=== PATIENT | female | born 1945 | race Hispanic/Latino ===

== ENCOUNTER 2021-04-06 11:09 | Day surgery (SDC) | payer OTHER ==
--- NOTE | 2021-04-03 11:03 | RAD REPORT ---
EXAM DESCRIPTION: RAD - Chest Pa And Lat (2 Views) - 04/03/2021 10:58 am CLINICAL HISTORY: pre-section laborer procedure COMPARISON: No comparisons FINDINGS: Lines: None. Lungs: No evidence of edema or pneumonia. Pleural: No significant pleural effusions or pneumothorax. Cardiac: The heart size is within normal limits. Bones: No acute fractures. Other: IMPRESSION: No acute cardiopulmonary disease.
[2021-04-03 11:21] LABS: Absolute Lymphocytes (CBC) 2.4 K/uL (0.7-4.9); Basophils % 0.9 % (0-1.3); Hematocrit 39.9 % (36.0-45.0); Lymphocytes % 38.4 % (15.3-44.8); MPV 8.4 fL (7.6-11.3); RBC Red Blood Cell Count 4.55 M/uL (3.86-4.86)
[2021-04-03 11:26] LABS: Protime INR 1.02
[2021-04-03 11:32] LABS: BUN Blood Urea Nitrogen 7 mg/dL (7-18); Bicarbonate 32 mmol/L (21-32); Glucose Level 113 mg/dL (74-106); Potassium 3.5 mmol/L (3.5-5.1); Sodium Level 144 mmol/L (136-145)
[2021-04-06] MEDS ORDERED: NA CHLORIDE 0.9% 500 ML ONE (11:38)
[2021-04-06] MEDS ORDERED: HEPA 1000U/500MLS 2,000 UNIT/1,000 ML BAG IV ONE (11:49)
[2021-04-06] MEDS ORDERED: MIDAZOLAM HCL 2 MG/2 ML INJ ONE ×2 (11:49→12:53)
[2021-04-06] MEDS ORDERED: VERAPAMIL HCL 10 MG/4 ML VIAL IV ONE (11:50)
[2021-04-06] MEDS ORDERED: FENTANYL CITR 100 MCG/2 ML ONE (11:50)
[2021-04-06] MEDS ORDERED: ATROPINE SULF 1 MG/10 ML SYR IV ONE (11:51)
[2021-04-06] MEDS ORDERED: HEPARIN 5000 UNIT/ML 1 ML VIAL ONE (11:51)
[2021-04-06] MEDS ORDERED: NITROGLYCERIN 100 MCG/ML SYR (for cath lab use only) IV ONE (11:51)
[2021-04-06 16:46] VITALS: TEMP 97.4
[2021-04-06 17:00] VITALS: O2SAT 96
[2021-04-06 17:03] VITALS: BP 122/64
--- NOTE | 2021-04-06 22:01 | OP ---
Surgeon: LISA CUADRA Procedures Performed: 1.Selective coronary angiogram. 2.Left heart catheterization. 3.Right heart catheterization. Indications: Significant dyspnea on exertion. Access: 1.The right radial artery 6-Bulgarian closed with TR band. 2.Right IJ 7-Bulgarian closed with manual pressure. Complications: None. Bleeding: Less than 10 mL. Anesthesia: Total sedation time was 20 minutes. Description Of Procedure: After risks, benefits, symptoms were explained, the patient agreed to proc eed and signed informed consent. The patient was brought into cardiac catheterization laboratory, pr epped and draped in usual sterile fashion and we accessed right radial artery using pediatric micropu ncture kit and placed a 6-Bulgarian slender sheath and accessed right IJ using micropuncture kit under u ltrasound guidance and placed a 7-Bulgarian pinnacle sheath and took a 7-Bulgarian balloon tip swan through the IJ access into the RA, RV, PA, and which recorded waveform and pressure and then cardiac output was obtained with thermodilution method, then removed despondent, took the 5-Bulgarian tiger 4.0 cathete r into the aortic root over a J-wire, engaged left main, right coronary artery, took standard views a nd the catheter was pushed over the wire into the LV across aortic valve, recorded LVEDP. Upon pullb ack, there was no gradient and removed the catheter and sheath is still in good hemostasis. Findings: 1.Left main, large and normal. 2.LAD, large and normal. 3.Left circumflex; codominant, large, and normal. 4.RCA; codominant, large, and normal. 5.LVEDP of 3 mmHg. Right heart catheterization numbers: RA pressure was 3 mmHg. RV pressure was 27/1 with a mean of 2. PA pressure was 19/8 with a mean of 13. Pulmonary wedge pressure was 5 mmHg. Conclusion: 1.Normal coronary arteries. 2.Normal filling pressures. Recommendations: Consult Pulmonary to evaluate other causes of shortness of breath. SR/MODL Voice ID: [id number] Report ID: [id number]
== END 2021-04-06 16:15 | disposition home or self-care (01) ==
LOC: CCL 11:09
PROVIDERS: ATTEND Internal Medicine
DX: R07.9 Chest pain, unspecified (principal); R06.02 Shortness of breath; I10 Essential (primary) hypertension; I49.3 Ventricular premature depolarization; Z20.822 Contact with and (suspected) exposure to COVID-19
CPT/HCPCS: 36415; 71046; 80048; 85025; 85610; 85730; 93460; C1893; J1644; J2250; J3010; J7040; U0003

== ENCOUNTER 2022-04-24 20:10 | Emergency (ER) | payer OTHER ==
--- OUTSIDE RECORDS SUMMARY | 2022-04-24 20:17 | XMS REPORT | Continuity of Care Document ---
:1945 Author Organization [facility] t Address [address] [place] [address] Care Team Providers Name Role Phone Gee Li MD Primary Care Physician DEDE HICKEY Attending Clinician Unavailable DEDE HICKEY Attending Clinician Unavailable Doctor Unassigned, [place] Attending Clinician Unavailable Vanesa Goldman Attending Clinician Lab, Ang - Db Attending Clinician Unavailable Gee Li MD Attending Clinician GEE LI Attending Clinician Unavailable WAYNE MACHADO Attending Clinician Unavailable Kanwal Tejeda DO Attending Clinician Wayne Machado DO Attending Clinician Dede Hickey DO Attending Clinician Austin Ying Attending Clinician AUSTIN ZARCO Attending Clinician Unavailable Mona Joseph Attending Clinician REBECCA FIERRO Attending Clinician Unavailable Rebecca Fierro MD Attending Clinician [facility], [facility] Sleep Lab Attending Clinician Unavailable Maricel Baxter MD Attending Clinician MARICEL BAXTER Attending Clinician Unavailable MARICEL BAXTER Attending Clinician Unavailable Therapist, Adc Respiratory Attending Clinician Unavailable Donnie Do MD Attending Clinician DONNIE DO Attending Clinician Unavailable Fredrick DUNN, Alaina Arriaga Attending Clinician Unavailable Only, Ang Db Test Attending Clinician Unavailable Priscilla Hooks Attending Clinician PRISCILLA SMITH Attending Clinician Unavailable KLEBER FLORES Attending Clinician Unavailable Nurse, [facility] Pob Immunization Attending Clinician Unavailable Kleber Flores DO Attending Clinician Brittni Manriquez Attending Clinician BRITTNI MORROW Attending Clinician Unavailable ESTER TINAJERO Attending Clinician Unavailable TAMMY CULP Attending Clinician Unavailable RAND EARLY M.D. Attending Clinician Unavailable DIANE LONDON Attending Clinician Unavailable MONICO KELLY Attending Clinician Unavailable ALLEN CROSS Attending Clinician Unavailable TEJINDER LEIVA Attending Clinician Unavailable KARTHIK CHAPIN Attending Clinician Unavailable 1, [facility] Lab Attending Clinician Unavailable Karthik Chapin MD Attending Clinician [phone] KANWAL TEJEDA Admitting Clinician Unavailable REBECCA FIERRO Admitting Clinician Unavailable DEDE HICKEY Admitting Clinician Unavailable Dede Hickey DO Admitting Clinician GEE LI Admitting Clinician Unavailable MONICO KELLY Admitting Clinician Unavailable TEJINDER LEIVA Admitting Clinician Unavailable Payers Payer Name Policy Type Policy Number Effective Date Expiration Date S [facility] [id number] 2020 MEDICARE ADV HMO 00:00:00 [employer] MEDICARE ERS [id number] 2014 00:00:00 Problems Condition Condition Condition Status Onset Resolution Last Treating Co mments Source Name Details Category Date Date Treatment Clinician Date MARVIN MARVIN Disease Active Overview: Univer s (dyspnea (dyspnea 6-06 Formattin ity of on on 00:00: g of this [place] exertion) exertion) 00 note Medi lora might be Branch different from the original. Added automatic ally from request for surgery [id number] Primary Primary Disease Active Univers hypertensi hypertensi 1-05 it y of on on 00:00: [place] [facility] Abnormal Abnormal Disease Active 2020-05 Unive rs chest chest 0-18 ity of x-ray x-ray 00:00: [place] [facility] Cardiac Cardiac Disease Active 2020-05 Univers arrhythmia arrhythmia 0-18 it y of , , 00:00: [place] unspecifie unspecifie 00 Me dical d cardiac d cardiac Bran ch arrhythmia arrhythmia type type Post-op Post-op Disease Active Univers pain pain 9-04 ity of 00:00: [place] [facility] Prediabete Prediabete Disease Active 2017-05 U jimers s s 0-24 ity of 00:00: [place] [facility] Osteoporos Osteoporos Disease Active 2015-05 U nivers is is 2-01 ity of 00:00: [place] [facility] Obesity Obesity Disease Active 2015-05 Univers (BMI (BMI 1-09 ity of 30-39.9) 30-39.9) 00:00: [place] [facility] Pain Pain Disease Active Univers 5-25 ity of 00:00: [place] [facility] Sciatica Sciatica Disease Active 2014-05 Unive rs associated associated 0-21 it y of with with 00:00: [place] disorder disorder 00 Medica l of of Branch lumbosacra lumbosacra l spine, l spine, right right Restless Restless Disease Active 2014-05 Unive rs leg leg 0-21 ity of syndrome syndrome 00:00: [place] [facility] Arthritis Arthritis Disease Active 2014-05 Uni vers of knee, of knee, 0-21 ity of left left 00:00: [place] [address] Medical Branch Acute pain Acute pain Problem Active U T of right of right Physic i knee knee ans History of History of Problem Active U T right knee right knee Ph ysici joint joint ans replacemen replacemen t t Allergies, Adverse Reactions, Alerts Allergy Allergy Status Severity Reaction(s) Onset Inactive Treating Comm ents Source Name Type Date Date Clinician NO KNOWN Drug Active Univers ALLERGIE Class ity of S [facility] Social History Social Habit Start Date Stop Date Quantity Comments Source History SDOH University o f Alcohol Frequency [place] [facility] History SDAK University o f Alcohol Std [place] [facility] Drinks Branch History SDAK University o f Alcohol Binge [place] [facility] Exposure to 2022-04-02 2022-04-12 Not sure [facility] SARS-CoV-2 00:00:00 07:34:00 [facility] (event) [place] Alcohol intake 2022-04-12 2022-04-12 0 /d University of 00:00:00 00:00:00 [facility] Tobacco use and 2021-12-11 2021-12-11 Smokeless tobacco Un iversity of exposure 00:00:00 00:00:00 non-user [facility] Alcohol Comment 2015-10-06 2015-10-06 Occassional Universi ty of 00:00:00 00:00:00 Drinker [facility] Sex [birth year] Universit y of 00:00:00 00:00:00 [facility] Smoking Status Start Date Stop Date Source Never smoked tobacco [facility] Medications Ordered Filled Start Stop Current Ordering Indication Dosage Frequency Signature Comments Components Source Medication Medication Date Date Medication? Clinician (SIG) Name Name magnesium 2021-05 Yes [id number] 400mg Take 1 Univers oxide (MGO) 1-28 tablet by ity of 400 mg 00:00: mouth in [place] (241.3 mg 00 the Medical magnesium) morning. Branc h tablet magnesium 2021-05 Yes [id number] 400mg Take 1 Univers oxide (MGO) 1-28 tablet by ity of 400 mg 00:00: mouth in [place] (241.3 mg 00 the Medical magnesium) morning. Branc h tablet magnesium 2021-05 Yes [id number] 400mg Take 1 Univers oxide (MGO) 1-28 tablet by ity of 400 mg 00:00: mouth in [place] (241.3 mg 00 the Medical magnesium) morning. Branc h tablet magnesium 2021-05 Yes [id number] 400mg Take 1 Univers oxide (MGO) 1-28 tablet by ity of 400 mg 00:00: mouth in [place] (241.3 mg 00 the Medical magnesium) morning. Branc h tablet magnesium 2021-05 Yes [id number] 400mg Take 1 Univers oxide (MGO) 1-28 tablet by ity of 400 mg 00:00: mouth in [place] (241.3 mg 00 the Medical magnesium) morning. Branc h tablet iopamidol 2021-05- No [id number] 75mL 75 mL, U nivers (ISOVUE 06-09 Intravenou ity o f 370-500 mL) 00:54: 01:00 s, ONCE, 1 [place] injection 00 :00 dose, On Medica l 75 mL [place] Branch 04/08/22 at 1900, Routine albuterol 2021-05- No 5mg 5 mg, Univer s (PROVENTIL) 06-09 Inhalation i ty of 2.5 mg /3 00:30: 23:46 , [place]CE[place] 1 [place] mL (0.083 00 :00 dose, On Medica l %) [facility] Branch nebulizer 04/08/22 solution 5 at 1830, mg LIBERTAD insulin 2021-05- No 5U 5 Units, Unive rs regular 06-09 Slow IV ity of human 00:00: 23:13 Push, [place] (HUMULIN R) 00 :00 ONCE, 1 Medic al injection 5 dose, On Bran ch Units [place] 04/08/22 at 1800, Routine
Indicatio n for insulin: Hyperglyce devendra NaCl 0.9% 2021-05- No 1000mL at 999 Uni vers (NS) bolus 06-08 11-25 mL/hr, ity of infusion 23:45: 00:46 1,000 mL, [place] as 1,000 mL 00 :00 IV Medical Infusion, Branch ONCE, 1 dose, On [place] 04/08/22 at 1745, LIBERTAD albuterol 2021-05 Yes [id number] 2{puff} Inhale 2 Univers 90 1-24 Puffs ity of mcg/actuati 00:00: every 4 [place] as on inhaler 00 (four) Medical hours as Branch needed for Wheezing or Shortness of Breath. albuterol 2021-05- No [id number] 2{puff} Inhale 2 Univers 90 1-24 11-28 Puffs ity of mcg/actuati 00:00: 00:00 [place] 4 [place] inhaler 00 :00 (four) Medical hours as Branch needed for Wheezing or Shortness of Breath. albuterol 2021-05- No [id number] 2{puff} Inhale 2 Univers 90 1-24 11-28 Puffs ity of mcg/actuati 00:00: 00:00 [place] 4 [place] inhaler 00 :00 (four) Medical hours as Branch needed for Wheezing or Shortness of Breath. predniSONE 2021-05- Yes [id number] 40mg Take 2 Univers 20 mg 1-22 11-28 tablets by ity of tablet 00:00: 05:59 mouth in [place] 00 :00 the [facility] morning [place] for 5 days. predniSONE 2021-05- Yes [id number] 40mg Take 2 Univers 20 mg 1-22 11-28 tablets by ity of tablet 00:00: 05:59 mouth in [place] 00 :00 the [facility] morning [place] for 5 days. predniSONE 2021-05- Yes [id number] 40mg Take 2 Univers 20 mg 1-22 11-28 tablets by ity of tablet 00:00: 05:59 mouth in [place] 00 :00 the [facility] morning [place] for 5 days. predniSONE 2021-05- Yes [id number] 40mg Take 2 Univers 20 mg 1-22 11-28 tablets by ity of tablet 00:00: 05:59 mouth in [place] 00 :00 the [facility] for 5 days. cefdinir 2021- Yes 300mg Take 300 Univ ers 300 mg 1-21 mg by ity of capsule 00:00: mouth in [place] [address] the [facility] morning [place] and 300 mg in the evening. cefdinir 2021-1 Yes 300mg Take 300 Univ ers 300 mg 1-21 mg by ity of capsule 00:00: mouth in [place] [address] the [facility] morning [place] and 300 mg in the evening. cefdinir 2021- Yes 300mg Take 300 Univ ers 300 mg 1-21 mg by ity of capsule 00:00: mouth in [place] [address] the [facility] morning [place] and 300 mg in the evening. cefdinir 2021-1 Yes 300mg Take 300 Univ ers 300 mg 1-21 mg by ity of capsule 00:00: mouth in [place] [address] the [facility] morning Branch and 300 mg in the evening. cefdinir 2021-1 Yes 300mg Take 300 Univ ers 300 mg 1-21 mg by ity of capsule 00:00: mouth in [place] [address] the [facility] morning [place] and 300 mg in the evening. cefdinir 2021-1 Yes 300mg Take 300 Univ ers 300 mg 1-21 mg by ity of capsule 00:00: mouth in [address] morning [place] and 300 mg in the evening. cefdinir 2021-05 Yes 300mg Take 300 Univ ers 300 mg 1-21 mg by ity of capsule 00:00: mouth in [place] 00 the Medical morning Branch and 300 mg in the evening. cefdinir 2021-05 Yes 300mg Take 300 Univ ers 300 mg 1-21 mg by ity of capsule 00:00: mouth in [place] 00 the Medical morning Branch and 300 mg in the evening. cefdinir 2021-05 Yes 300mg Take 300 Univ ers 300 mg 1-21 mg by ity of capsule 00:00: mouth in [place] 00 the Medical morning Branch and 300 mg in the evening. benzonatate 2021-05 Yes [id number] 100mg Take 1 Univers 100 mg 1-17 capsule by ity of capsule 00:00: mouth [place] 00 every 8 Medical (eight) Branch hours as needed for Cough. benzonatate 2021-05 Yes [id number] 100mg Take 1 Univers 100 mg 1-17 capsule by ity of capsule 00:00: mouth [place] 00 every 8 Medical (eight) Branch hours as needed for Cough. benzonatate 2021-05 Yes [id number] 100mg Take 1 Univers 100 mg 1-17 capsule by ity of capsule 00:00: mouth [place] 00 every 8 Medical (eight) Branch hours as needed for Cough. benzonatate 2021-05 Yes [id number] 100mg Take 1 Univers 100 mg 1-17 capsule by ity of capsule 00:00: mouth [place] 00 every 8 Medical (eight) Branch hours as needed for Cough. benzonatate 2021-05 Yes [id number] 100mg Take 1 Univers 100 mg 1-17 capsule by ity of capsule 00:00: mouth [place] 00 every 8 Medical (eight) Branch hours as needed for Cough. benzonatate 2021-05 Yes [id number] 100mg Take 1 Univers 100 mg 1-17 capsule by ity of capsule 00:00: mouth [place] 00 every 8 Medical (eight) Branch hours as needed for Cough. benzonatate 2021-05 Yes [id number] 100mg Take 1 Univers 100 mg 1-17 capsule by ity of capsule 00:00: mouth [place] 00 every 8 Medical (eight) Branch hours as needed for Cough. benzonatate 2021-05 Yes [id number] 100mg Take 1 Univers 100 mg 1-17 capsule by ity of capsule 00:00: mouth [place] 00 every 8 Medical (eight) Branch hours as needed for Cough. benzonatate 2021-05 Yes [id number] 100mg Take 1 Univers 100 mg 1-17 capsule by ity of capsule 00:00: mouth [place] 00 every 8 Medical (eight) Branch hours as needed for Cough. benzonatate 2021-05 Yes [id number] 100mg Take 1 Univers 100 mg 1-17 capsule by ity of capsule 00:00: mouth [place] 00 every 8 Medical (eight) Branch hours as needed for Cough. benzonatate 2021-05 Yes [id number] 100mg Take 1 Univers 100 mg 1-17 capsule by ity of capsule 00:00: mouth [place] 00 every 8 Medical (eight) Branch hours as needed for Cough. IBANDRONATE 2021-05 Yes [id number] TAKE 1 Univers 150 mg 1-10 TABLET BY ity of tablet 00:00: MOUTH ONCE EVERY Medical MONTH Branch IBANDRONATE 2021-05 Yes [id number] TAKE 1 Univers 150 mg 1-10 TABLET BY ity of tablet 00:00: MOUTH ONCE EVERY Medical MONTH Branch IBANDRONATE 2021-05 Yes [id number] TAKE 1 Univers 150 mg 1-10 TABLET BY ity of tablet 00:00: MOUTH ONCE EVERY Medical MONTH Branch IBANDRONATE 2021-05 Yes [id number] TAKE 1 Univers 150 mg 1-10 TABLET BY ity of tablet 00:00: MOUTH ONCE EVERY Medical MONTH Branch IBANDRONATE 2021-05 Yes [id number] TAKE 1 Univers 150 mg 1-10 TABLET BY ity of tablet 00:00: MOUTH EVERY Medical MONTH Branch IBANDRONATE 2021-05 Yes [id number] TAKE 1 Univers 150 mg 1-10 TABLET BY ity of tablet 00:00: MOUTH ONCE EVERY Medical MONTH Branch IBANDRONATE 2021-05 Yes [id number] TAKE 1 Univers 150 mg 1-10 TABLET BY ity of tablet 00:00: MOUTH ONCE EVERY Medical MONTH Branch IBANDRONATE 2021-05 Yes [id number] TAKE 1 Univers 150 mg 1-10 TABLET BY ity of tablet 00:00: MOUTH ONCE EVERY Medical MONTH Branch IBANDRONATE 2021-05 Yes [id number] TAKE 1 Univers 150 mg 1-10 TABLET BY ity of tablet 00:00: MOUTH ONCE EVERY Medical MONTH Branch IBANDRONATE 2021-05 Yes [id number] TAKE 1 Univers 150 mg 1-10 TABLET BY ity of tablet 00:00: MOUTH ONCE [place] [address] EVERY Medical [facility] Branch IBANDRONATE 2021-05 Yes [id number] TAKE 1 Univers 150 mg 1-10 TABLET BY ity of tablet 00:00: MOUTH ONCE [place] [address] EVERY [facility] IBANDRONATE 2021-05 Yes [id number] TAKE 1 Univers 150 mg 1-10 TABLET BY ity of tablet 00:00: MOUTH ONCE [place] [address] EVERY [facility] montelukast 2021-05 Yes Univer s 10 mg 0-19 ity of tablet 00:00: [place] [facility] montelukast 2021-05 Yes Univer s 10 mg 0-19 ity of tablet 00:00: [address] montelukast 2021-05 Yes Univer s 10 mg 0-19 ity of tablet 00:00: [address] montelukast 2021-05 Yes Univer s 10 mg 0-19 ity of tablet 00:00: [address] montelukast 2021-05 Yes Univer s 10 mg 0-19 ity of tablet 00:00: [address] montelukast 2021-05 Yes Univer s 10 mg 0-19 ity of tablet 00:00: [address] montelukast 2021-05 Yes Univer s 10 mg 0-19 ity of tablet 00:00: [address] montelukast 2021-05 Yes Univer s 10 mg 0-19 ity of tablet 00:00: [address] montelukast 2021-05 Yes Univer s 10 mg 0-19 ity of tablet 00:00: [address] montelukast 2021-05 Yes Univer s 10 mg 0-19 ity of tablet 00:00: [address] montelukast 2021-05 Yes Univer s 10 mg 0-19 ity of tablet 00:00: [address] furosemide 0 Yes 20mg Take 20 mg U nivers 20 mg 8-02 by mouth ity of tablet 09:48: daily. [address] furosemide 2021-0 Yes 20mg Take 20 mg U nivers 20 mg 8-02 by mouth ity of tablet 09:48: daily. [address] furosemide 2022-0 Yes 20mg Take 20 mg U nivers 20 mg 8-02 by mouth ity of tablet 09:48: daily. [address] furosemide 2022-0 Yes 20mg Take 20 mg U nivers 20 mg 8-02 by mouth ity of tablet 09:48: daily. [address] furosemide 2022-0 Yes 20mg Take 20 mg U nivers 20 mg 8-02 by mouth ity of tablet 09:48: daily. [address] furosemide 2022-0 Yes 20mg Take 20 mg U nivers 20 mg 8-02 by mouth ity of tablet 09:48: daily. [address] furosemide 2022-0 Yes 20mg Take 20 mg U nivers 20 mg 8-02 by mouth ity of tablet 09:48: daily. [address] furosemide 2022-0 Yes 20mg Take 20 mg U nivers 20 mg 8-02 by mouth ity of tablet 09:48: daily. [address] furosemide 2022-0 Yes 20mg Take 20 mg U nivers 20 mg 8-02 by mouth ity of tablet 09:48: daily. [address] furosemide 2022-0 Yes 20mg Take 20 mg U nivers 20 mg 8-02 by mouth ity of tablet 09:48: daily. [address] furosemide 2022-0 Yes 20mg Take 20 mg U nivers 20 mg 8-02 by mouth ity of tablet 09:48: daily. [address] furosemide 2022-0 Yes 20mg Take 20 mg U nivers 20 mg 8-02 by mouth ity of tablet 09:48: daily. [address] furosemide 2022-0 Yes 20mg Take 20 mg U nivers 20 mg 8-02 by mouth ity of tablet 09:48: daily. [address] furosemide 2022-0 Yes 20mg Take 20 mg U nivers 20 mg 8-02 by mouth ity of tablet 09:48: daily. [address] furosemide 2022-0 Yes 20mg Take 20 mg U nivers 20 mg 8-02 by mouth ity of tablet 09:48: daily. [address] furosemide 2022-0 Yes 20mg Take 20 mg U nivers 20 mg 8-02 by mouth ity of tablet 09:48: daily. [address] furosemide 2022-0 Yes 20mg Take 20 mg U nivers 20 mg 8-02 by mouth ity of tablet 09:48: daily. [place] [address] Medical Branch furosemide 2022-0 Yes 20mg Take 20 mg U nivers 20 mg 8-02 by mouth ity of tablet 09:48: daily. [place] [address] Medical Branch gabapentin 2022-0 Yes [id number] 300mg Take 1 Univers 300 mg 8-02 capsule by ity of capsule 00:00: mouth at [place] [address] bedtime. Medical Branch gabapentin 2022-0 Yes [id number] 300mg Take 1 Univers 300 mg 8-02 capsule by ity of capsule 00:00: mouth at [place] [address] bedtime. Medical Branch gabapentin 2022-0 Yes [id number] 300mg Take 1 Univers 300 mg 8-02 capsule by ity of capsule 00:00: mouth at [place] [address] bedtime. Medical Branch gabapentin 2022-0 Yes [id number] 300mg Take 1 Univers 300 mg 8-02 capsule by ity of capsule 00:00: mouth at [place] [address] bedtime. Medical Branch gabapentin 2022-0 Yes [id number] 300mg Take 1 Univers 300 mg 8-02 capsule by ity of capsule 00:00: mouth at [place] [address] bedtime. Medical Branch gabapentin 2022-0 Yes [id number] 300mg Take 1 Univers 300 mg 8-02 capsule by ity of capsule 00:00: mouth at [place] [address] bedtime. Medical Branch gabapentin 2022-0 Yes [id number] 300mg Take 1 Univers 300 mg 8-02 capsule by ity of capsule 00:00: mouth at [place] [address] bedtime. Medical Branch gabapentin 2022-0 Yes [id number] 300mg Take 1 Univers 300 mg 8-02 capsule by ity of capsule 00:00: mouth at [place] [address] bedtime. Medical Branch gabapentin 2022-0 Yes [id number] 300mg Take 1 Univers 300 mg 8-02 capsule by ity of capsule 00:00: mouth at [place] [address] bedtime. Medical Branch gabapentin 2022-0 Yes [id number] 300mg Take 1 Univers 300 mg 8-02 capsule by ity of capsule 00:00: mouth at [place] [address] bedtime. Medical Branch gabapentin 2022-0 Yes [id number] 300mg Take 1 Univers 300 mg 8-02 capsule by ity of capsule 00:00: mouth at [place] [address] bedtime. Medical Branch gabapentin 2022-0 Yes [id number] 300mg Take 1 Univers 300 mg 8-02 capsule by ity of capsule 00:00: mouth at [place] 00 bedtime. Medical Branch gabapentin 2-0 Yes [id number] 300mg Take 1 Univers 300 mg 12-15 capsule by ity of capsule 00:00: mouth at [place] 00 bedtime. Medical Branch gabapentin 2021-0 2022- No [id number] 300mg Take 1 Univers 300 mg 12-15 capsule by ity of capsule 00:00: 00:00 mouth at [place] 00 :00 bedtime. Medical Branch gabapentin 2-0 2022- No [id number] 300mg Take 1 Univers 300 mg 12-15 capsule by ity of capsule 00:00: 00:00 mouth at [place] 00 :00 bedtime. Medical Branch magnesium 2021-0 Yes [id number] 400mg Take 1 Univers oxide (MGO) 8-01 tablet by ity of 400 mg 00:00: mouth in [place] (241.3 mg 00 the Medical magnesium) morning. Branc h tablet magnesium 2021-0 Yes [id number] 400mg Take 1 Univers oxide (MGO) 8-01 tablet by ity of 400 mg 00:00: mouth in [place] (241.3 mg 00 the Medical magnesium) morning. Branc h tablet magnesium 2021-0 Yes [id number] 400mg Take 1 Univers oxide (MGO) 8-01 tablet by ity of 400 mg 00:00: mouth in [place] (241.3 mg 00 the Medical magnesium) morning. Branc h tablet magnesium 2021-0 Yes [id number] 400mg Take 1 Univers oxide (MGO) 8-01 tablet by ity of 400 mg 00:00: mouth in [place] (241.3 mg 00 the Medical magnesium) morning. Branc h tablet magnesium 2021-0 Yes [id number] 400mg Take 1 Univers oxide (MGO) 8-01 tablet by ity of 400 mg 00:00: mouth in [place] (241.3 mg 00 the Medical magnesium) morning. Branc h tablet magnesium 2021-0 Yes [id number] 400mg Take 1 Univers oxide (MGO) 8-01 tablet by ity of 400 mg 00:00: mouth in [place] (241.3 mg 00 the Medical magnesium) morning. Branc h tablet magnesium 2021-0 Yes [id number] 400mg Take 1 Univers oxide (MGO) 8-01 tablet by ity of 400 mg 00:00: mouth in [place] (241.3 mg 00 the Medical magnesium) morning. Branc h tablet magnesium 2021-0 Yes [id number] 400mg Take 1 Univers oxide (MGO) 8-01 tablet by ity of 400 mg 00:00: mouth in [place] (241.3 mg 00 the Medical magnesium) morning. Branc h tablet magnesium 2-0 Yes [id number] 400mg Take 1 Univers oxide (MGO) 8- tablet by ity of 400 mg 00:00: mouth in [place] (241.3 mg 00 the Medical magnesium) morning. Branc h tablet magnesium 2021-0 Yes [id number] 400mg Take 1 Univers oxide (MGO) 8- tablet by ity of 400 mg 00:00: mouth in [place] (241.3 mg 00 the Medical magnesium) morning. Branc h tablet magnesium 2021-0 Yes [id number] 400mg Take 1 Univers oxide (MGO) 8- tablet by ity of 400 mg 00:00: mouth in [place] (241.3 mg 00 the Medical magnesium) morning. Branc h tablet magnesium 2021-0 Yes [id number] 400mg Take 1 Univers oxide (MGO) 8- tablet by ity of 400 mg 00:00: mouth in [place] (241.3 mg 00 the Medical magnesium) morning. Branc h tablet magnesium 2021-0 Yes [id number] 400mg Take 1 Univers oxide (MGO) 8- tablet by ity of 400 mg 00:00: mouth in [place] (241.3 mg 00 the Medical magnesium) morning. Branc h tablet magnesium 2021-0 2021- No [id number] 400mg Take 1 Univers oxide (MGO) 12-14 tablet by it y of 400 mg 00:00: 00:00 mouth in [place] (241.3 mg 00 :00 the Medical magnesium) morning. Branc h tablet magnesium 2021-0 2021- No [id number] 400mg Take 1 Univers oxide (MGO) -04-12 tablet by it y of 400 mg 00:00: 00:00 mouth in [place] (241.3 mg 00 :00 the Medical magnesium) morning. Branc h tablet HYDROcodone 2021-0 2021- No [id number] 1{tbl} Take 1 U nivers -acetaminop 12-14 tablet by it y of hen 7.5-325 00:00: 04:59 [place] mg per 00 :00 every 6 Medical tablet (six) Branch hours as needed for Pain for up to 7 days. Indication s: chronic pain HYDROcodone 2021- No [id number] 1{tbl} Take 1 U nivers -acetaminop 8-05 23-09 tablet by it y of hen 7.5-325 00:00: 04:59 [place] mg per 00 :00 every 6 Medical tablet (six) Branch hours as needed for Pain for up to 7 days. Indication s: chronic pain HYDROcodone 2021- No [id number] 1{tbl} Take 1 U nivers -acetaminop 8-05 23- tablet by it y of hen 7.5-325 00:00: 04:59 [place] mg per 00 :00 every 6 Medical tablet (six) Branch hours as needed for Pain for up to 7 days. Indication s: chronic pain IBANDRONATE 0 Yes [id number] TAKE 1 Univers 150 mg 7-22 TABLET BY ity of tablet 00:00: MOUTH ONCE EVERY Medical MONTH Branch IBANDRONATE 2021-0 Yes [id number] TAKE 1 Univers 150 mg 7-22 TABLET BY ity of tablet 00:00: MOUTH ONCE EVERY Medical MONTH Branch IBANDRONATE 2021-0 Yes [id number] TAKE 1 Univers 150 mg 7-22 TABLET BY ity of tablet 00:00: MOUTH ONCE EVERY Medical MONTH Branch IBANDRONATE 2021-0 Yes [id number] TAKE 1 Univers 150 mg 7-22 TABLET BY ity of tablet 00:00: MOUTH ONCE EVERY Medical MONTH Branch IBANDRONATE 2021-0 Yes [id number] TAKE 1 Univers 150 mg 7-22 TABLET BY ity of tablet 00:00: MOUTH ONCE EVERY Medical MONTH Branch IBANDRONATE 2021-0 Yes [id number] TAKE 1 Univers 150 mg 7-22 TABLET BY ity of tablet 00:00: MOUTH ONCE EVERY Medical MONTH Branch IBANDRONATE 2021-0 2021- No [id number] TAKE 1 Univers 150 mg 7-22 11-10 TABLET BY ity of tablet 00:00: 00:00 M[place]TH [place]CE [place] 00 :00 EVERY Medical MONTH Branch albuterol 2021-0 Yes [id number] 2{puff} Inhale 2 [facility] 90 1-28 Puffs ity of mcg/actuati 00:00: every 6 [place] on inhaler 00 (six) Medical hours as Branch needed for Wheezing or Shortness of Breath. albuterol Yes [id number] 2{puff} Inhale 2 [facility] 90 1-28 Puffs ity of mcg/actuati 00:00: every 6 [place] on inhaler 00 (six) Medical hours as Branch needed for Wheezing or Shortness of Breath. albuterol Yes [id number] 2{puff} Inhale 2 [facility] 90 1-28 Puffs ity of mcg/actuati 00:00: every 6 [place] on inhaler 00 (six) Medical hours as Branch needed for Wheezing or Shortness of Breath. albuterol Yes [id number] 2{puff} Inhale 2 [facility] 90 1-28 Puffs ity of mcg/actuati 00:00: every 6 [place] on inhaler 00 (six) Medical hours as Branch needed for Wheezing or Shortness of Breath. albuterol Yes [id number] 2{puff} Inhale 2 [facility] 90 1-28 Puffs ity of mcg/actuati 00:00: every 6 [place] on inhaler 00 (six) Medical hours as Branch needed for Wheezing or Shortness of Breath. albuterol Yes [id number] 2{puff} Inhale 2 [facility] 90 1-28 Puffs ity of mcg/actuati 00:00: every 6 [place] on inhaler 00 (six) Medical hours as Branch needed for Wheezing or Shortness of Breath. albuterol Yes [id number] 2{puff} Inhale 2 [facility] 90 1-28 Puffs ity of mcg/actuati 00:00: every 6 [place] on inhaler 00 (six) Medical hours as Branch needed for Wheezing or Shortness of Breath. albuterol Yes [id number] 2{puff} Inhale 2 [facility] 90 1-28 Puffs ity of mcg/actuati 00:00: every 6 [place] on inhaler 00 (six) Medical hours as Branch needed for Wheezing or Shortness of Breath. albuterol Yes [id number] 2{puff} Inhale 2 [facility] 90 1-28 Puffs ity of mcg/actuati 00:00: every 6 [place] on inhaler 00 (six) Medical hours as Branch needed for Wheezing or Shortness of Breath. albuterol Yes [id number] 2{puff} Inhale 2 [facility] 90 1-28 Puffs ity of mcg/actuati 00:00: every 6 [place] on inhaler 00 (six) Medical hours as Branch needed for Wheezing or Shortness of Breath. albuterol Yes [id number] 2{puff} Inhale 2 [facility] 90 1-28 Puffs ity of mcg/actuati 00:00: every 6 [place] on inhaler 00 (six) Medical hours as Branch needed for Wheezing or Shortness of Breath. albuterol Yes [id number] 2{puff} Inhale 2 [facility] 90 1-28 Puffs ity of mcg/actuati 00:00: every 6 [place] on inhaler 00 (six) Medical hours as Branch needed for Wheezing or Shortness of Breath. albuterol 2021- No [id number] 2{puff} Inhale 2 [facility] 90 1-28 11-24 Puffs ity of mcg/actuati 00:00: 00:00 every 6 [place] on inhaler 00 :00 (six) Medical hours as Branch needed for Wheezing or Shortness of Breath. latanoprost Yes 1[drp] Place 1 U nivers 0.005 % 9-16 Drop in ity of ophthalmic 00:00: both eyes [place] drops 00 at Medical bedtime. Branch latanoprost Yes 1[drp] Place 1 U nivers 0.005 % 9-16 Drop in ity of ophthalmic 00:00: both eyes [place] drops 00 at Medical bedtime. Branch latanoprost Yes 1[drp] Place 1 U nivers 0.005 % 9-16 Drop in ity of ophthalmic 00:00: both eyes [place] drops 00 at Medical bedtime. Branch latanoprost Yes 1[drp] Place 1 U nivers 0.005 % 9-16 Drop in ity of ophthalmic 00:00: both eyes [place] drops 00 at Medical bedtime. Branch latanoprost Yes 1[drp] Place 1 U nivers 0.005 % 9-16 Drop in ity of ophthalmic 00:00: both eyes [place] drops 00 at Medical bedtime. Branch latanoprost Yes 1[drp] Place 1 U nivers 0.005 % 9-16 Drop in ity of ophthalmic 00:00: both eyes [place] drops 00 at Medical bedtime. Branch latanoprost Yes 1[drp] Place 1 U nivers 0.005 % 9-16 Drop in ity of ophthalmic 00:00: both eyes [place] drops 00 at Medical bedtime. Branch latanoprost Yes 1[drp] Place 1 U nivers 0.005 % 9-16 Drop in ity of ophthalmic 00:00: both eyes [place] drops 00 at Medical bedtime. Branch latanoprost Yes 1[drp] Place 1 U nivers 0.005 % 9-16 Drop in ity of ophthalmic 00:00: both eyes [place] drops 00 at Medical bedtime. Branch latanoprost Yes 1[drp] Place 1 U nivers 0.005 % 9-16 Drop in ity of ophthalmic 00:00: both eyes [place] drops 00 at Medical bedtime. Branch latanoprost Yes 1[drp] Place 1 U n[facility] 0.005 % 9-16 Drop in ity of ophthalmic 00:00: both eyes [place] drops 00 at Medical bedtime. Branch latanoprost Yes 1[drp] Place 1 U nivers 0.005 % 9-16 Drop in ity of ophthalmic 00:00: both eyes [place] drops 00 at Medical bedtime. Branch latanoprost Yes 1[drp] Place 1 U n[facility] 0.005 % 9-16 Drop in ity of ophthalmic 00:00: both eyes [place] drops 00 at Medical bedtime. Branch latanoprost Yes 1[drp] Place 1 U n[facility] 0.005 % 9-16 Drop in ity of ophthalmic 00:00: both eyes [place] drops 00 at Medical bedtime. Branch latanoprost Yes 1[drp] Place 1 U nivers 0.005 % 9-16 Drop in ity of ophthalmic 00:00: both eyes [place] drops 00 at Medical bedtime. Branch latanoprost Yes 1[drp] Place 1 U nivers 0.005 % 9-16 Drop in ity of ophthalmic 00:00: both eyes [place] drops 00 at Medical bedtime. Branch latanoprost Yes 1[drp] Place 1 U nivers 0.005 % 9-16 Drop in ity of ophthalmic 00:00: both eyes [place] drops 00 at Medical bedtime. Branch latanoprost Yes 1[drp] Place 1 U nivers 0.005 % 9-16 Drop in ity of ophthalmic 00:00: both eyes [place] drops 00 at Medical bedtime. Branch ROPINIROLE 2020-0 Yes Take 1 Unive rs 1 mg tablet 7-29 tablet by ity of 00:00: mouth once [place] daily Medical Branch ROPINIROLE 2020-0 Yes Take 1 Unive rs 1 mg tablet 7-29 tablet by ity of 00:00: mouth once [place] daily [facility] Branch ROPINIROLE 2020-0 Yes Take 1 Unive rs 1 mg tablet 7-29 tablet by ity of 00:00: mouth once [place] daily [facility] Branch ROPINIROLE 2020-0 Yes Take 1 Unive rs 1 mg tablet 7-29 tablet by ity of 00:00: mouth once [place] daily [facility] Branch ROPINIROLE 2020-0 Yes Take 1 Unive rs 1 mg tablet 7-29 tablet by ity of 00:00: mouth once [place] daily [facility] Branch ROPINIROLE 2020-0 Yes Take 1 Unive rs 1 mg tablet 7-29 tablet by ity of 00:00: mouth once [place] daily [facility] Branch ROPINIROLE 2020-0 Yes Take 1 Unive rs 1 mg tablet 7-29 tablet by ity of 00:00: mouth once [place] daily [facility] Branch ROPINIROLE 2020-0 Yes Take 1 Unive rs 1 mg tablet 7-29 tablet by ity of 00:00: mouth once [place] daily [facility] Branch ROPINIROLE 2020-0 Yes Take 1 Unive rs 1 mg tablet 7-29 tablet by ity of 00:00: mouth once [place] daily [facility] Branch ROPINIROLE 2020-0 Yes Take 1 Unive rs 1 mg tablet 7-29 tablet by ity of 00:00: mouth once daily Medical Branch ROPINIROLE 2020-0 Yes Take 1 Unive rs 1 mg tablet 7-29 tablet by ity of 00:00: mouth once daily Medical Branch ROPINIROLE 2020-0 Yes Take 1 Unive rs 1 mg tablet 7-29 tablet by ity of 00:00: mouth once daily Medical Branch ROPINIROLE 2020-0 Yes Take 1 Unive rs 1 mg tablet 7-29 tablet by ity of 00:00: mouth once daily Medical Branch ROPINIROLE 2020-0 Yes Take 1 Unive rs 1 mg tablet 7-29 tablet by ity of 00:00: mouth once daily Medical Branch ROPINIROLE 2020-0 Yes Take 1 Unive rs 1 mg tablet 7-29 tablet by ity of 00:00: mouth once [place] daily [facility] ROPINIROLE 2020-0 Yes Take 1 Unive rs 1 mg tablet 7-29 tablet by ity of 00:00: mouth once [place] daily [facility] Branch ROPINIROLE 2020-0 Yes Take 1 Unive rs 1 mg tablet 7-29 tablet by ity of 00:00: mouth once [place] daily [facility] ROPINIROLE 2020-0 Yes Take 1 Unive rs 1 mg tablet 7-29 tablet by ity of 00:00: mouth once [place] daily [facility] omeprazole 2019-0 Yes 40mg Take 40 mg U nivers 40 mg 6-27 by mouth ity of capsule 00:00: daily. [place] [facility] omeprazole 2019-0 Yes 40mg Take 40 mg U nivers 40 mg 6-27 by mouth ity of capsule 00:00: daily. [place] [facility] omeprazole 2019-0 Yes 40mg Take 40 mg U nivers 40 mg 6-27 by mouth ity of capsule 00:00: daily. [place] [facility] omeprazole 2019-0 Yes 40mg Take 40 mg U nivers 40 mg 6-27 by mouth ity of capsule 00:00: daily. [place] [facility] omeprazole 2019-0 Yes 40mg Take 40 mg U nivers 40 mg 6-27 by mouth ity of capsule 00:00: daily. [place] [facility] omeprazole 2019-0 Yes 40mg Take 40 mg U nivers 40 mg 6-27 by mouth ity of capsule 00:00: daily. [address] omeprazole 2019-0 Yes 40mg Take 40 mg U nivers 40 mg 6-27 by mouth ity of capsule 00:00: daily. [place] [facility] omeprazole 2019-0 Yes 40mg Take 40 mg U nivers 40 mg 6-27 by mouth ity of capsule 00:00: daily. [address] omeprazole 2019-0 Yes 40mg Take 40 mg U nivers 40 mg 6-27 by mouth ity of capsule 00:00: daily. [place] [facility] omeprazole 2019-0 Yes 40mg Take 40 mg U nivers 40 mg 6-27 by mouth ity of capsule 00:00: daily. [address] omeprazole 2019-0 Yes 40mg Take 40 mg U nivers 40 mg 6-27 by mouth ity of capsule 00:00: daily. [address] omeprazole 2019-0 Yes 40mg Take 40 mg U nivers 40 mg 6-27 by mouth ity of capsule 00:00: daily. [address] omeprazole 2019-0 Yes 40mg Take 40 mg U nivers 40 mg 6-27 by mouth ity of capsule 00:00: daily. [address] omeprazole 2019-0 Yes 40mg Take 40 mg U nivers 40 mg 6-27 by mouth ity of capsule 00:00: daily. [address] omeprazole 2019-0 Yes 40mg Take 40 mg U nivers 40 mg 6-27 by mouth ity of capsule 00:00: daily. [address] omeprazole 2019-0 Yes 40mg Take 40 mg U nivers 40 mg 6-27 by mouth ity of capsule 00:00: daily. [address] omeprazole 2019-0 Yes 40mg Take 40 mg U nivers 40 mg 6-27 by mouth ity of capsule 00:00: daily. [address] omeprazole 2019-0 Yes 40mg Take 40 mg U nivers 40 mg 6-27 by mouth ity of capsule 00:00: daily. [address] Immunizations Ordered Filled Immunization Date Status Comments Sour e Immunization Name Name Influenza Virus 2022-04-01 Completed [facility] 65+ SARS-COV-2 COVID-19 2022-04-01 Completed Unive rsity of ELAINE-SUCROSE 00:00:00 [place] [facility] VACCINE [facility] Y[facility] Branch BIVALENT 0.3ML, IM, (PFIZER STARKS TOP BOOSTER) Influenza Virus 2022-04-01 Completed Universit [facility] of Vaccine,quad 00:00:00 [place] [facility] 65+ SARS-COV-2 COVID-19 2022-04-01 Completed Unive rsity of ELAINE-SUCROSE 00:00:00 [place] [facility] VACCINE 12 YRS+, Branch BIVALENT 0.3ML, IM, (PFIZER STARKS TOP BOOSTER) Influenza Virus 2022-04-01 Completed [facility]it y of Vaccine,quad 00:00:00 [place] [facility] 65+ SARS-COV-2 COVID-19 2022-04-01 Completed Unive rsity of ELAINE-SUCROSE 00:00:00 [place] [facility] VACCINE 12 YRS+, Branch BIVALENT 0.3ML, IM, (PFIZER STARKS TOP BOOSTER) Influenza Virus 2022-04-01 Completed Universit y of Vaccine,quad 00:00:00 [place] [facility] Im,[facility] Free [facility] 65+ SARS-COV-2 COVID-19 2022-04-01 Completed Unive rsity of ELAINE-SUCROSE 00:00:00 [place] [facility] VACCINE 12 YRS+, Branch BIVALENT 0.3ML, IM, (PFIZER STARKS TOP BOOSTER) Influenza Virus 2022-04-01 Completed [facility]it y of Vaccine,quad 00:00:00 [place] [facility] 65+ SARS-COV-2 COVID-19 2022-04-01 Completed Unive rsity of ELAINE-SUCROSE 00:00:00 [place] [facility] VACCINE 12 YRS+, Branch BIVALENT 0.3ML, IM, (PFIZER STARKS TOP BOOSTER) Influenza Virus 2022-04-01 Completed Universit y of Vaccine,quad 00:00:00 [place] [facility] Im,[facility] Free [facility] 65+ SARS-COV-2 COVID-19 2022-04-01 Completed Unive rsity of ELAINE-SUCROSE 00:00:00 [place] [facility] VACCINE 12 YRS+, Branch BIVALENT 0.3ML, IM, (PFIZER STARKS TOP BOOSTER) Influenza Virus 2022-04-01 Completed Universit y of Vaccine,quad 00:00:00 [place] [facility] Im,preserve Free Branch 65+ SARS-COV-2 COVID-19 2022-04-01 Completed Unive rsity of ELAINE-SUCROSE 00:00:00 [place] [facility] VACCINE 12 YRS+, Branch BIVALENT 0.3ML, IM, (PFIZER STARKS TOP BOOSTER) Influenza Virus 2022-04-01 Completed Universit y of Vaccine,quad 00:00:00 [place] [facility] Im,[facility] Free [facility] 65+ SARS-COV-2 COVID-19 2022-04-01 Completed Unive rsity of ELAINE-SUCROSE 00:00:00 [place] [facility] VACCINE 12 YRS+, Branch BIVALENT 0.3ML, IM, (PFIZER STARKS TOP BOOSTER) Influenza Virus 2022-04-01 Completed Universit y of Vaccine,quad 00:00:00 [place] [facility] Im,[facility] Free Branch 65+ SARS-COV-2 COVID-19 2022-04-01 Completed Unive rsity of ELAINE-SUCROSE 00:00:00 [place] [facility] VACCINE 12 YRS+, Branch BIVALENT 0.3ML, IM, (PFIZER STARKS TOP BOOSTER) Influenza Virus 2022-04-01 Completed Universit y of Vaccine,quad 00:00:00 [place] [facility] Im,[facility] Free Branch 65+ SARS-COV-2 COVID-19 2022-04-01 Completed Unive rsity of ELAINE-SUCROSE 00:00:00 [place] [facility] VACCINE 12 YRS+, Branch BIVALENT 0.3ML, IM, (PFIZER STARKS TOP BOOSTER) Influenza Virus 2022-04-01 Completed Universit y of Vaccine,quad 00:00:00 [place] [facility] Im,preserve Free Branch 65+ SARS-COV-2 COVID-19 2022-04-01 Completed Unive rsity of ELAINE-SUCROSE 00:00:00 [place] [facility] VACCINE 12 YRS+, Branch BIVALENT 0.3ML, IM, (PFIZER STARKS TOP BOOSTER) SARS-COV-2 COVID-19 2021-04-21 Completed Unive rsity of PFIZER VACCINE 00:00:00 [facility] Branch SARS-COV-2 COVID-19 2021-04-21 Completed Unive rsity of PFIZER VACCINE 00:00:00 [facility] SARS-COV-2 COVID-19 2021-04-21 Completed Unive rsity of PFIZER VACCINE 00:00:00 [facility] SARS-COV-2 COVID-19 2021-04-21 Completed Unive rsity of PFIZER VACCINE 00:00:00 [facility] SARS-COV-2 COVID-19 2021-04-21 Completed Unive rsity of PFIZER VACCINE 00:00:00 [facility] SARS-COV-2 COVID-19 2021-04-21 Completed Unive rsity of PFIZER VACCINE 00:00:00 [facility] SARS-COV-2 COVID-19 2021-04-21 Completed Unive rsity of PFIZER VACCINE 00:00:00 [facility] SARS-COV-2 COVID-19 2021-04-21 Completed Unive rsity of PFIZER VACCINE 00:00:00 [facility] SARS-COV-2 COVID-19 2021-04-21 Completed Unive rsity of PFIZER VACCINE 00:00:00 [facility] SARS-COV-2 COVID-19 2021-04-21 Completed Unive rsity of PFIZER VACCINE 00:00:00 [facility] SARS-COV-2 COVID-19 2021-04-21 Completed Unive rsity of PFIZER VACCINE 00:00:00 [facility] SARS-COV-2 COVID-19 2021-04-21 Completed Unive rsity of PFIZER VACCINE 00:00:00 [facility] SARS-COV-2 COVID-19 2021-04-21 Completed Unive rsity of PFIZER VACCINE 00:00:00 [facility] SARS-COV-2 COVID-19 2021-04-21 Completed Unive rsity of PFIZER VACCINE 00:00:00 [facility] SARS-COV-2 COVID-19 2021-04-21 Completed Unive rsity of PFIZER VACCINE 00:00:00 [facility] SARS-COV-2 COVID-19 2021-04-21 Completed Unive rsity of PFIZER VACCINE 00:00:00 [facility] SARS-COV-2 COVID-19 2021-04-21 Completed Unive rsity of PFIZER VACCINE 00:00:00 [facility] SARS-COV-2 COVID-19 2021-04-21 Completed Unive rsity of PFIZER VACCINE 00:00:00 [facility] Influenza Virus 2021-03-04 Completed Universit y of Vaccine,quad 00:00:00 [place] [facility] 65+ Influenza Virus 2021-03-04 Completed Universit y of Vaccine,quad 00:00:00 [place] [facility] 65+ Influenza Virus 2021-03-04 Completed Universit y of Vaccine,quad 00:00:00 [place] [facility] Im,preserve Free Branch 65+ Influenza Virus 2021-03-04 Completed Universit y of Vaccine,quad 00:00:00 [place] [facility] Im,preserve Free Branch 65+ Influenza Virus 2021-03-04 Completed Universit y of Vaccine,quad 00:00:00 [place] [facility] Im,preserve Free Branch 65+ Influenza Virus 2021-03-04 Completed Universit y of Vaccine,quad 00:00:00 [place] [facility] Im,preserve Free Branch 65+ Influenza Virus 2021-03-04 Completed Universit y of Vaccine,quad 00:00:00 [place] [facility] Im,preserve Free Branch 65+ Influenza Virus 2021-03-04 Completed Universit y of Vaccine,quad 00:00:00 [place] [facility] Im,preserve Free Branch 65+ Influenza Virus 2021-03-04 Completed Universit y of Vaccine,quad 00:00:00 [place] [facility] Im,preserve Free Branch 65+ Influenza Virus 2021-03-04 Completed Universit y of Vaccine,quad 00:00:00 [place] [facility] Im,preserve Free Branch 65+ Influenza Virus 2021-03-04 Completed Universit y of Vaccine,quad 00:00:00 [place] [facility] Im,preserve Free Branch 65+ Influenza Virus 2021-03-04 Completed [facility]it y of Vaccine,quad 00:00:00 [place] [facility] Im,preserve Free Branch 65+ Influenza Virus 2021-03-04 Completed Universit y of Vaccine,quad 00:00:00 [place] [facility] Im,[facility] Free Branch 65+ Influenza Virus 2021-03-04 Completed Universit y of Vaccine,quad 00:00:00 [place] [facility] Im,[facility] Free Branch 65+ Influenza Virus 2021-03-04 Completed [facility]it y of Vaccine,quad 00:00:00 [place] [facility] Im,[facility] Free Branch 65+ Influenza Virus 2021-03-04 Completed Universit y of Vaccine,quad 00:00:00 [place] [facility] Im,[facility] Branch 65+ Influenza Virus 2021-03-04 Completed [facility]it y of Vaccine,quad 00:00:00 [place] [facility] Im,[facility] Free Branch 65+ Influenza Virus 2021-03-04 Completed Universit y of Vaccine,quad 00:00:00 [facility] Im,[facility] 65+ SARS-COV-2 COVID-19 2020-08-02 Completed Unive rsity of PFIZER VACCINE 00:00:00 [facility] SARS-COV-2 COVID-19 2020-08-02 Completed Unive rsity of PFIZER VACCINE 00:00:00 [facility] SARS-COV-2 COVID-19 2020-08-02 Completed Unive rsity of PFIZER VACCINE 00:00:00 [facility] SARS-COV-2 COVID-19 2020-08-02 Completed Unive rsity of PFIZER VACCINE 00:00:00 [facility] SARS-COV-2 COVID-19 2020-08-02 Completed Unive rsity of PFIZER VACCINE 00:00:00 [facility] SARS-COV-2 COVID-19 2020-08-02 Completed Unive rsity of PFIZER VACCINE 00:00:00 [facility] SARS-COV-2 COVID-19 2020-08-02 Completed Unive rsity of PFIZER VACCINE 00:00:00 [facility] SARS-COV-2 COVID-19 2020-08-02 Completed Unive rsity of PFIZER VACCINE 00:00:00 [facility] SARS-COV-2 COVID-19 2020-08-02 Completed Unive rsity of PFIZER VACCINE 00:00:00 [facility] SARS-COV-2 COVID-19 2020-08-02 Completed Unive rsity of PFIZER VACCINE 00:00:00 [facility] SARS-COV-2 COVID-19 2020-08-02 Completed Unive rsity of PFIZER VACCINE 00:00:00 [facility] SARS-COV-2 COVID-19 2020-08-02 Completed Unive rsity of PFIZER VACCINE 00:00:00 [facility] SARS-COV-2 COVID-19 2020-08-02 Completed Unive rsity of PFIZER VACCINE 00:00:00 [facility] SARS-COV-2 COVID-19 2020-08-02 Completed Unive rsity of PFIZER VACCINE 00:00:00 [facility] SARS-COV-2 COVID-19 2020-08-02 Completed Unive rsity of PFIZER VACCINE 00:00:00 [facility] SARS-COV-2 COVID-19 2020-08-02 Completed Unive rsity of PFIZER VACCINE 00:00:00 [facility] SARS-COV-2 COVID-19 2020-08-02 Completed Unive rsity of PFIZER VACCINE 00:00:00 [facility] SARS-COV-2 COVID-19 2020-08-02 Completed Unive rsity of PFIZER VACCINE 00:00:00 [facility] SARS-COV-2 COVID-19 2020-07-12 Completed Unive rsity of PFIZER VACCINE 00:00:00 [facility] SARS-COV-2 COVID-19 2020-07-12 Completed Unive rsity of PFIZER VACCINE 00:00:00 [facility] SARS-COV-2 COVID-19 2020-07-12 Completed Unive rsity of PFIZER VACCINE 00:00:00 [facility] SARS-COV-2 COVID-19 2020-07-12 Completed Unive rsity of PFIZER VACCINE 00:00:00 [facility] SARS-COV-2 COVID-19 2020-07-12 Completed Unive rsity of PFIZER VACCINE 00:00:00 [facility] SARS-COV-2 COVID-19 2020-07-12 Completed Unive rsity of PFIZER VACCINE 00:00:00 [facility] SARS-COV-2 COVID-19 2020-07-12 Completed Unive rsity of PFIZER VACCINE 00:00:00 [facility] SARS-COV-2 COVID-19 2020-07-12 Completed Unive rsity of PFIZER VACCINE 00:00:00 [facility] SARS-COV-2 COVID-19 2020-07-12 Completed Unive rsity of PFIZER VACCINE 00:00:00 [facility] SARS-COV-2 COVID-19 2020-07-12 Completed Unive rsity of PFIZER VACCINE 00:00:00 [facility] SARS-COV-2 COVID-19 2020-07-12 Completed Unive rsity of PFIZER VACCINE 00:00:00 [facility] SARS-COV-2 COVID-19 2020-07-12 Completed Unive rsity of PFIZER VACCINE 00:00:00 [facility] SARS-COV-2 COVID-19 2020-07-12 Completed Unive rsity of PFIZER VACCINE 00:00:00 [facility] SARS-COV-2 COVID-19 2020-07-12 Completed Unive rsity of PFIZER VACCINE 00:00:00 [facility] SARS-COV-2 COVID-19 2020-07-12 Completed Unive rsity of PFIZER VACCINE 00:00:00 [facility] SARS-COV-2 COVID-19 2020-07-12 Completed Unive rsity of PFIZER VACCINE 00:00:00 [facility] SARS-COV-2 COVID-19 2020-07-12 Completed Unive rsity of PFIZER VACCINE 00:00:00 [facility] SARS-COV-2 COVID-19 2020-07-12 Completed Unive rsity of PFIZER VACCINE 00:00:00 [facility] Influenza High Dose 2020-03-17 Completed Unive rsity of Quad 00:00:00 [facility] Influenza High Dose 2020-03-17 Completed Unive rsity of Quad 00:00:00 [facility] Influenza High Dose 2020-03-17 Completed Unive rsity of Quad 00:00:00 [facility] Influenza High Dose 2020-03-17 Completed Unive rsity of Quad 00:00:00 [facility] Influenza High Dose 2020-03-17 Completed Unive rsity of Quad 00:00:00 [facility] Influenza High Dose 2020-03-17 Completed Unive rsity of Quad 00:00:00 [facility] Influenza High Dose 2020-03-17 Completed Unive rsity of Quad 00:00:00 [facility] Influenza High Dose 2020-03-17 Completed Unive rsity of Quad 00:00:00 [facility] Influenza High Dose 2020-03-17 Completed Unive rsity of Quad 00:00:00 [facility] Influenza High Dose 2020-03-17 Completed Unive rsity of Quad 00:00:00 [facility] Influenza High Dose 2020-03-17 Completed Unive rsity of Quad 00:00:00 [facility] Influenza High Dose 2020-03-17 Completed Unive rsity of Quad 00:00:00 [facility] Influenza High Dose 2020-03-17 Completed Unive rsity of Quad 00:00:00 [facility] Influenza High Dose 2020-03-17 Completed Unive rsity of Quad 00:00:00 [facility] Influenza High Dose 2020-03-17 Completed Unive rsity of Quad 00:00:00 [facility] Influenza High Dose 2020-03-17 Completed Unive rsity of Quad 00:00:00 [facility] Influenza High Dose 2020-03-17 Completed Unive rsity of Quad 00:00:00 [facility] Influenza High Dose 2020-03-17 Completed Unive rsity of Quad 00:00:00 [facility] Influenza High Dose 2019-02-15 Completed Unive rsity of 00:00:00 [facility] Influenza High Dose 2019-02-15 Completed Unive rsity of 00:00:00 [facility] Influenza High Dose 2019-02-15 Completed Unive rsity of 00:00:00 [facility] Influenza High Dose 2019-02-15 Completed Unive rsity of 00:00:00 [facility] Influenza High Dose 2019-02-15 Completed Unive rsity of 00:00:00 [facility] Influenza High Dose 2019-02-15 Completed Unive rsity of 00:00:00 [facility] Influenza High Dose 2019-02-15 Completed [facility] 00:00:00 [facility] Influenza High Dose 2019-02-15 Completed [facility] 00:00:00 [facility] Influenza High Dose 2019-02-15 Completed [facility]ity of 00:00:00 [facility] Influenza High Dose 2019-02-15 Completed [facility]ive rs[facility] of 00:00:00 [facility] Influenza High Dose 2019-02-15 Completed [facility]ive rsity of 00:00:00 [facility] Influenza High Dose 2019-02-15 Completed [facility]ive rsity of 00:00:00 [facility] Influenza High Dose 2019-02-15 Completed [facility]ive rsity of 00:00:00 [facility] Influenza High Dose 2019-02-15 Completed [facility] of 00:00:00 [facility] Influenza High Dose 2019-02-15 Completed [facility] of 00:00:00 [facility] Influenza High Dose 2019-02-15 Completed [facility] of 00:00:00 [facility] Influenza High Dose 2019-02-15 Completed [facility] of 00:00:00 [facility] Influenza High Dose 2019-02-15 Completed [facility] of 00:00:00 [facility] Influenza High Dose 2018-03-07 Completed [facility] of 00:00:00 [facility] Influenza High Dose 2018-03-07 Completed [facility] of 00:00:00 [facility] Influenza High Dose 2018-03-07 Completed [facility] of 00:00:00 [facility] Influenza High Dose 2018-03-07 Completed [facility] of 00:00:00 [facility] Influenza High Dose 2018-03-07 Completed [facility] of 00:00:00 [facility] Influenza High Dose 2018-03-07 Completed [facility] of 00:00:00 [facility] Influenza High Dose 2018-03-07 Completed [facility] of 00:00:00 [facility] Influenza High Dose 2018-03-07 Completed [facility] of 00:00:00 [facility] Influenza High Dose 2018-03-07 Completed [facility] of 00:00:00 [facility] Influenza High Dose 2018-03-07 Completed [facility] of 00:00:00 [facility] Influenza High Dose 2018-03-07 Completed [facility] of 00:00:00 [facility] Influenza High Dose 2018-03-07 Completed [facility] of 00:00:00 [facility] Influenza High Dose 2018-03-07 Completed [facility] of 00:00:00 [facility] Influenza High Dose 2018-03-07 Completed [facility] of 00:00:00 [facility] Influenza High Dose 2018-03-07 Completed [facility] of 00:00:00 [facility] Influenza High Dose 2018-03-07 Completed [facility] of 00:00:00 [facility] Influenza High Dose 2018-03-07 Completed [facility] of 00:00:00 [facility] Influenza High Dose 2018-03-07 Completed [facility] of 00:00:00 [facility] Zoster Vaccine 2017-12-26 Completed University of Recombinant 00:00:00 [facility] Zoster Vaccine 2017-12-26 Completed University of Recombinant 00:00:00 [facility] Zoster Vaccine 2017-12-26 Completed University of Recombinant 00:00:00 [facility] Zoster Vaccine 2017-12-26 Completed University of Recombinant 00:00:00 [facility] Zoster Vaccine 2017-12-26 Completed University of Recombinant 00:00:00 [facility] Zoster Vaccine 2017-12-26 Completed University of Recombinant 00:00:00 [facility] Zoster Vaccine 2017-12-26 Completed University of Recombinant 00:00:00 [facility] Zoster Vaccine 2017-12-26 Completed University of Recombinant 00:00:00 [facility] Zoster Vaccine 2017-12-26 Completed University of Recombinant 00:00:00 [facility] Zoster Vaccine 2017-12-26 Completed University of Recombinant 00:00:00 [facility] Zoster Vaccine 2017-12-26 Completed University of Recombinant 00:00:00 [facility] Zoster Vaccine 2017-12-26 Completed University of Recombinant 00:00:00 [facility] Zoster Vaccine 2017-12-26 Completed University of Recombinant 00:00:00 [facility] Zoster Vaccine 2017-12-26 Completed University of Recombinant 00:00:00 [facility] Zoster Vaccine 2017-12-26 Completed University of Recombinant 00:00:00 [facility] Zoster Vaccine 2017-12-26 Completed University of Recombinant 00:00:00 [facility] Zoster Vaccine 2017-12-26 Completed University of Recombinant 00:00:00 [facility] Zoster Vaccine 2017-12-26 Completed University of Recombinant 00:00:00 [facility] Influenza High Dose 2017-03-29 Completed [facility]ive rsity of 00:00:00 [facility] TDAP 2017-03-29 Completed University of 00:00:00 [facility] Influenza High Dose 2017-03-29 Completed [facility] of 00:00:00 [facility] TDAP 2017-03-29 Completed University of 00:00:00 [facility] Influenza High Dose 2017-03-29 Completed [facility]ive [facility] of 00:00:00 [facility] TDAP 2017-03-29 Completed University of 00:00:00 [facility] Influenza High Dose 2017-03-29 Completed [facility]ive rsity of 00:00:00 [facility] TDAP 2017-03-29 Completed University of 00:00:00 [facility] Influenza High Dose 2017-03-29 Completed [facility]ive [facility] of 00:00:00 [facility] TDAP 2017-03-29 Completed University of 00:00:00 [facility] Influenza High Dose 2017-03-29 Completed [facility]ive rs[facility] of 00:00:00 [facility] TDAP 2017-03-29 Completed University of 00:00:00 [facility] Influenza High Dose 2017-03-29 Completed [facility] of 00:00:00 [facility] TDAP 2017-03-29 Completed University of 00:00:00 [facility] Influenza High Dose 2017-03-29 Completed [facility]ive [facility]ity of 00:00:00 [facility] TDAP 2017-03-29 Completed University of 00:00:00 [facility] Influenza High Dose 2017-03-29 Completed [facility] rs[facility] of 00:00:00 [facility] TDAP 2017-03-29 Completed University of 00:00:00 [facility] Influenza High Dose 2017-03-29 Completed [facility]ive [facility]ity of 00:00:00 [facility] TDAP 2017-03-29 Completed University of 00:00:00 [facility] Influenza High Dose 2017-03-29 Completed [facility]ive [facility]ity of 00:00:00 [facility] TDAP 2017-03-29 Completed University of 00:00:00 [facility] Influenza High Dose 2017-03-29 Completed [facility]ive rs[facility] of 00:00:00 [facility] TDAP 2017-03-29 Completed University of 00:00:00 [facility] Influenza High Dose 2017-03-29 Completed [facility] of 00:00:00 [facility] TDAP 2017-03-29 Completed University of 00:00:00 [facility] Influenza High Dose 2017-03-29 Completed [facility] rsity of 00:00:00 [facility] TDAP 2017-03-29 Completed University of 00:00:00 [facility] Influenza High Dose 2017-03-29 Completed [facility]ity of 00:00:00 [facility] TDAP 2017-03-29 Completed University of 00:00:00 [facility] Influenza High Dose 2017-03-29 Completed [facility] of 00:00:00 [facility] TDAP 2017-03-29 Completed University of 00:00:00 [facility] Influenza High Dose 2017-03-29 Completed [facility]ive [facility] of 00:00:00 [facility] TDAP 2017-03-29 Completed University of 00:00:00 [facility] Influenza High Dose 2017-03-29 Completed [facility]ive [facility] of 00:00:00 [facility] TDAP 2017-03-29 Completed University of 00:00:00 [facility] Influenza High Dose 2016-04-15 Completed [facility]ive rsity of 00:00:00 [facility] Pneumococcal 2016-04-15 Completed University o f Polysaccharide, 00:00:00 [facility] PPSV23 (PNEUMOVAX) Branch Influenza High Dose 2016-04-15 Completed [facility]ive rsity of 00:00:00 [facility] Pneumococcal 2016-04-15 Completed [facility] o f Polysaccharide, 00:00:00 [place] [facility] PPSV23 (PNEUMOVAX) Branch Influenza High Dose 2016-04-15 Completed [facility]ive [facility] of 00:00:00 [facility] Pneumococcal 2016-04-15 Completed University o f Polysaccharide, 00:00:00 [place] [facility] PPSV23 (PNEUMOVAX) Branch Influenza High Dose 2016-04-15 Completed [facility]ive [facility] of 00:00:00 [facility] Pneumococcal 2016-04-15 Completed University o f Polysaccharide, 00:00:00 [place] [facility] PPSV23 (PNEUMOVAX) Branch Influenza High Dose 2016-04-15 Completed [facility] of 00:00:00 [facility] Pneumococcal 2016-04-15 Completed University o f Polysaccharide, 00:00:00 [place] [facility] PPSV23 (PNEUMOVAX) Branch Influenza High Dose 2016-04-15 Completed [facility]ive rs[facility] of 00:00:00 [facility] Pneumococcal 2016-04-15 Completed University o f Polysaccharide, 00:00:00 [place] [facility] PPSV23 (PNEUMOVAX) Branch Influenza High Dose 2016-04-15 Completed [facility] of 00:00:00 [facility] Pneumococcal 2016-04-15 Completed University o f Polysaccharide, 00:00:00 [place] [facility] PPSV23 (PNEUMOVAX) Branch Influenza High Dose 2016-04-15 Completed [facility] of 00:00:00 [facility] Pneumococcal 2016-04-15 Completed University o f Polysaccharide, 00:00:00 [place] [facility] PPSV23 (PNEUMOVAX) Branch Influenza High Dose 2016-04-15 Completed [facility] of 00:00:00 [facility] Pneumococcal 2016-04-15 Completed University o f Polysaccharide, 00:00:00 [place] [facility] PPSV23 (PNEUMOVAX) Branch Influenza High Dose 2016-04-15 Completed [facility] of 00:00:00 [facility] Pneumococcal 2016-04-15 Completed University o f Polysaccharide, 00:00:00 [place] [facility] PPSV23 (PNEUMOVAX) Branch Influenza High Dose 2016-04-15 Completed [facility] of 00:00:00 [facility] Pneumococcal 2016-04-15 Completed University o f Polysaccharide, 00:00:00 [place] [facility] PPSV23 (PNEUMOVAX) Branch Influenza High Dose 2016-04-15 Completed [facility] of 00:00:00 [facility] Pneumococcal 2016-04-15 Completed University o f Polysaccharide, 00:00:00 [place] [facility] PPSV23 (PNEUMOVAX) Branch Influenza High Dose 2016-04-15 Completed [facility] of 00:00:00 [facility] Pneumococcal 2016-04-15 Completed University o f Polysaccharide, 00:00:00 [place] [facility] PPSV23 (PNEUMOVAX) Branch Influenza High Dose 2016-04-15 Completed [facility] of 00:00:00 [facility] Pneumococcal 2016-04-15 Completed University o f Polysaccharide, 00:00:00 [place] [facility] PPSV23 (PNEUMOVAX) Branch Influenza High Dose 2016-04-15 Completed [facility] of 00:00:00 [facility] Pneumococcal 2016-04-15 Completed University o f Polysaccharide, 00:00:00 [place] [facility] PPSV23 (PNEUMOVAX) Branch Influenza High Dose 2016-04-15 Completed [facility] of 00:00:00 [facility] Pneumococcal 2016-04-15 Completed University o f Polysaccharide, 00:00:00 [place] [facility] PPSV23 (PNEUMOVAX) Branch Influenza High Dose 2016-04-15 Completed [facility] of 00:00:00 [facility] Pneumococcal 2016-04-15 Completed University o f Polysaccharide, 00:00:00 [place] [facility] PPSV23 (PNEUMOVAX) Branch Influenza High Dose 2016-04-15 Completed [facility]ive [facility] of 00:00:00 [facility] Pneumococcal 2016-04-15 Completed University o f Polysaccharide, 00:00:00 [place] [facility] PPSV23 (PNEUMOVAX) Branch Influenza High Dose 2015-03-05 Completed [facility] of 00:00:00 [facility] Pneumococcal 2015-03-05 Completed University o f Polysaccharide, 00:00:00 [place] [facility] PPSV23 (PNEUMOVAX) Branch Influenza High Dose 2015-03-05 Completed [facility] of 00:00:00 [facility] Pneumococcal 2015-03-05 Completed University o f Polysaccharide, 00:00:00 [place] [facility] PPSV23 (PNEUMOVAX) Branch Influenza High Dose 2015-03-05 Completed [facility] of 00:00:00 [facility] Pneumococcal 2015-03-05 Completed University o f Polysaccharide, 00:00:00 [place] [facility] PPSV23 (PNEUMOVAX) Branch Influenza High Dose 2015-03-05 Completed [facility] of 00:00:00 [facility] Pneumococcal 2015-03-05 Completed University o f Polysaccharide, 00:00:00 [place] [facility] PPSV23 (PNEUMOVAX) Branch Influenza High Dose 2015-03-05 Completed [facility]ive rsity of 00:00:00 [facility] Pneumococcal 2015-03-05 Completed University o f Polysaccharide, 00:00:00 [place] [facility] PPSV23 (PNEUMOVAX) Branch Influenza High Dose 2015-03-05 Completed [facility] of 00:00:00 [facility] Pneumococcal 2015-03-05 Completed University o f Polysaccharide, 00:00:00 [place] [facility] PPSV23 (PNEUMOVAX) Branch Influenza High Dose 2015-03-05 Completed [facility]ive [facility] of 00:00:00 [facility] Pneumococcal 2015-03-05 Completed University o f Polysaccharide, 00:00:00 [place] [facility] PPSV23 (PNEUMOVAX) Branch Influenza High Dose 2015-03-05 Completed [facility] of 00:00:00 [facility] Pneumococcal 2015-03-05 Completed University o f Polysaccharide, 00:00:00 [place] [facility] PPSV23 (PNEUMOVAX) Branch Influenza High Dose 2015-03-05 Completed [facility] of 00:00:00 [facility] Pneumococcal 2015-03-05 Completed University o f Polysaccharide, 00:00:00 [place] [facility] PPSV23 (PNEUMOVAX) Branch Influenza High Dose 2015-03-05 Completed [facility] of 00:00:00 [facility] Pneumococcal 2015-03-05 Completed University o f Polysaccharide, 00:00:00 [place] [facility] PPSV23 (PNEUMOVAX) Branch Influenza High Dose 2015-03-05 Completed [facility]ive [facility] of 00:00:00 [facility] Pneumococcal 2015-03-05 Completed [facility] o f Polysaccharide, 00:00:00 [place] [facility] PPSV23 (PNEUMOVAX) Branch Influenza High Dose 2015-03-05 Completed [facility] of 00:00:00 [facility] Pneumococcal 2015-03-05 Completed University o f Polysaccharide, 00:00:00 [place] [facility] PPSV23 (PNEUMOVAX) Branch Influenza High Dose 2015-03-05 Completed [facility]ive rsity of 00:00:00 [facility] Pneumococcal 2015-03-05 Completed University o f Polysaccharide, 00:00:00 [place] [facility] PPSV23 (PNEUMOVAX) Branch Influenza High Dose 2015-03-05 Completed [facility] of 00:00:00 [facility] Pneumococcal 2015-03-05 Completed University o f Polysaccharide, 00:00:00 [place] [facility] PPSV23 (PNEUMOVAX) Branch Influenza High Dose 2015-03-05 Completed [facility] of 00:00:00 [facility] Pneumococcal 2015-03-05 Completed [facility] o f Polysaccharide, 00:00:00 [place] [facility] PPSV23 (PNEUMOVAX) Branch Influenza High Dose 2015-03-05 Completed [facility] of 00:00:00 [facility] Pneumococcal 2015-03-05 Completed University o f Polysaccharide, 00:00:00 [place] [facility] PPSV23 (PNEUMOVAX) Branch Influenza High Dose 2015-03-05 Completed [facility] of 00:00:00 [facility] Pneumococcal 2015-03-05 Completed [facility] o f Polysaccharide, 00:00:00 [place] [facility] PPSV23 (PNEUMOVAX) Branch Influenza High Dose 2015-03-05 Completed [facility] of 00:00:00 [facility] Pneumococcal 2015-03-05 Completed University o f Polysaccharide, 00:00:00 [place] [facility] PPSV23 (PNEUMOVAX) Branch Pneumococcal 13 2014-02-05 Completed Universit y of Conjugate, PCV13 00:00:00 [facility] dical (Prevnar 13) Branch Pneumococcal 13 2014-02-05 Completed Universit y of Conjugate, PCV13 00:00:00 [place] [facility] (Prevnar 13) Branch Pneumococcal 13 2014-02-05 Completed Universit y of Conjugate, PCV13 00:00:00 [place] [facility] (Prevnar 13) Branch Pneumococcal 13 2014-02-05 Completed Universit y of Conjugate, PCV13 00:00:00 [place] [facility] (Prevnar 13) Branch Pneumococcal 13 2014-02-05 Completed Universit y of Conjugate, PCV13 00:00:00 [place] [facility] (Prevnar 13) Branch Pneumococcal 13 2014-02-05 Completed Universit y of Conjugate, PCV13 00:00:00 [place] [facility] (Prevnar 13) Branch Pneumococcal 13 2014-02-05 Completed Universit y of Conjugate, PCV13 00:00:00 [place] [facility] (Prevnar 13) Branch Pneumococcal 13 2014-02-05 Completed Universit y of Conjugate, PCV13 00:00:00 [place] [facility] (Prevnar 13) Branch Pneumococcal 13 2014-02-05 Completed Universit y of Conjugate, PCV13 00:00:00 [place] [facility] (Prevnar 13) Branch Pneumococcal 13 2014-02-05 Completed Universit y of Conjugate, PCV13 00:00:00 [place] [facility] (Prevnar 13) Branch Pneumococcal 13 2014-02-05 Completed Universit y of Conjugate, PCV13 00:00:00 [place] [facility] (Prevnar 13) Branch Pneumococcal 13 2014-02-05 Completed Universit y of Conjugate, PCV13 00:00:00 [place] [facility] (Prevnar 13) Branch Pneumococcal 13 2014-02-05 Completed Universit y of Conjugate, PCV13 00:00:00 [place] [facility] (Prevnar 13) Branch Pneumococcal 13 2014-02-05 Completed Universit y of Conjugate, PCV13 00:00:00 [place] [facility] (Prevnar 13) Branch Pneumococcal 13 2014-02-05 Completed Universit y of Conjugate, PCV13 00:00:00 [place] [facility] (Prevnar 13) Branch Pneumococcal 13 2014-02-05 Completed Universit y of Conjugate, PCV13 00:00:00 [place] [facility] (Prevnar 13) Branch Pneumococcal 13 2014-02-05 Completed Universit y of Conjugate, PCV13 00:00:00 [place] [facility] (Prevnar 13) Branch Pneumococcal 13 2014-02-05 Completed Universit y of Conjugate, PCV13 00:00:00 [place] [facility] (Prevnar 13) Branch Vital Signs Vital Name Observation Time Observation Value Comments Source Systolic blood 2022-04-12 13:41:00 139 mm[Hg] Univer sity of pressure [facility] Diastolic blood 2022-04-12 13:41:00 85 mm[Hg] Unive rsity of pressure [facility] Heart rate 2022-04-12 13:41:00 86 /min [facility] Body height 2022-04-12 13:41:00 152.4 cm [facility] Body weight 2022-04-12 13:41:00 85.186 kg [facility] [place] [facility] BMI 2022-04-12 13:41:00 36.68 kg/m2 [facility] [place] [facility] Oxygen saturation in 2022-04-12 13:41:00 96 /min [facility] of Arterial blood by [facility] Pulse oximetry Branch Respiratory rate 2022-04-09 00:01:00 28 /min [facility] [place] [facility] Oxygen saturation in 2022-04-09 00:01:00 98 /min [facility] of Arterial blood by [facility] Pulse oximetry Branch Systolic blood 2022-04-09 00:00:00 153 mm[Hg] [facility] Diastolic blood 2022-04-09 00:00:00 98 mm[Hg] [facility] Heart rate 2022-04-09 00:00:00 104 /min [facility] Body temperature 2022-04-08 22:47:00 37.56 Lissy [facility] Body weight 2022-04-08 22:47:00 82.555 kg [facility] BMI 2022-04-08 22:47:00 35.54 kg/m2 [facility] [place] [facility] Systolic blood 2022-04-06 17:44:00 133 mm[Hg] [facility] Diastolic blood 2022-04-06 17:44:00 84 mm[Hg] [facility] Heart rate 2022-04-06 17:44:00 84 /min [facility] Body height 2022-04-06 17:44:00 152.4 cm [facility] Body weight 2022-04-06 17:44:00 83.144 kg [facility] [place] [facility] BMI 2022-04-06 17:44:00 35.80 kg/m2 [facility] Oxygen saturation in 2022-04-06 17:44:00 98 /min [facility] Arterial blood by [facility] Pulse oximetry Branch Systolic blood 2022-04-01 19:07:00 127 mm[Hg] [facility] Diastolic blood 2022-04-01 19:07:00 81 mm[Hg] [facility] Heart rate 2022-04-01 19:07:00 92 /min [facility] Body height 2022-04-01 19:07:00 152.4 cm [facility] Body weight 2022-04-01 19:07:00 82.328 kg [facility] [place] [facility] BMI 2022-04-01 19:07:00 35.45 kg/m2 [facility] [place] [facility] Oxygen saturation in 2022-04-01 19:07:00 97 /min [facility] Arterial blood by [facility] Pulse oximetry Branch Systolic blood 2022-03-05 17:00:00 133 mm[Hg] [facility] Diastolic blood 2022-03-05 17:00:00 85 mm[Hg] [facility] Heart rate 2022-03-05 17:00:00 81 /min [facility] [place] [facility] Oxygen saturation in 2022-03-05 17:00:00 97 /min [facility] Arterial blood by [facility] Pulse oximetry Branch Respiratory rate 2022-03-05 16:57:00 18 /min [facility] [place] [facility] Body height 2022-03-05 16:57:00 152.4 cm [facility] Body weight 2022-03-05 16:57:00 81.829 kg [facility] [place] [facility] BMI 2022-03-05 16:57:00 35.23 kg/m2 [facility] [place] [facility] Systolic blood 2021-12-15 14:57:00 138 mm[Hg] [facility] Diastolic blood 2021-12-15 14:57:00 86 mm[Hg] [facility] Heart rate 2021-12-15 14:57:00 83 /min [facility] Respiratory rate 2021-12-15 14:57:00 22 /min [facility] Body height 2021-12-15 14:57:00 152.4 cm [facility] Body weight 2021-12-15 14:57:00 84.55 kg [facility] [place] [facility] BMI 2021-12-15 14:57:00 36.40 kg/m2 [facility] Oxygen saturation in 2021-12-15 14:57:00 93 /min [facility] Arterial blood by [facility] Pulse oximetry Branch Procedures Procedure Date / Time Performing Clinician Source Performed EXTERNAL PROVIDER 2022-04-20 06:01:00 Doctor Unassigned, No [facility] RECORDS Name Medical Branch CT CHEST PULMONARY 2022-04-09 00:57:00 Kanwal Tejeda [facility] ANGIOGRAM Medical Branch POCT GLUCOSE 2022-04-09 00:22:00 Kanwal Tejeda [facility] (AUTOMATED) [facility] POCT GLUCOSE 2022-04-08 23:46:00 Kanwal Tejeda [facility] (AUTOMATED) [facility] XR CHEST 1 VW 2022-04-08 23:18:39 Kanwal Tejeda [facility] POCT GLUCOSE(AGE 2022-04-08 23:12:00 Kanwal Tejeda [facility] >30DAYS) Medical Branch LIPASE 2022-04-08 22:58:00 Kanwal Tejeda [facility] MAGNESIUM 2022-04-08 22:58:00 Kawnal Tejeda [facility] TROPONIN I 2022-04-08 22:58:00 Kanwal Tejeda [facility] COMP. METABOLIC PANEL 2022-04-08 22:58:00 Kanwal Tejeda [facility] ([id number]) [facility] CBC WITH DIFF 2022-04-08 22:58:00 Kanwal Tejeda [facility] GLYCOSYLATED HEMOGLOBIN 2022-04-08 22:58:00 Kanwal Tejeda [facility] (A1C) [facility] URINALYSIS 2022-04-08 22:58:00 Kanwal Tejeda [facility] RAPID INFLUENZA A/B 2022-04-08 22:58:00 Kanwal Tejeda [facility] POCT GLUCOSE 2022-04-08 22:58:00 Kanwal Tejeda [facility] (AUTOMATED) [facility] N-TERMINAL PRO-BNP 2022-04-08 22:58:00 Kanwal Tejeda [facility] COVID-[facility] (ID NOW RAPID 2022-04-08 22:58:00 [facility]wal [facility] [place] [facility] CONSENT/REFUSAL FOR 2022-04-08 22:54:01 Doctor Unassigned, No [facility] [place] DI[facility] TREATMENT Name [facility] SARS-COV-2 COVID-19 2022-04-01 19:34:25 Gee Li [facility] ELAINE-SUCROSE VACCINE 12 [facility] YRS+, BIVALENT 0.3ML, IM, (PFIZER STARKS TOP BOOSTER) FLU 2022-04-01 19:24:24 Eddy [facility] [place] VACC(),65+YR,0 Medical Branch .5 ML,IM,ADJUVANTED,QUAD(F LUAD) ASSIGNMENT OF BENEFITS 2022-03-05 16:10:54 Doctor Unassigned, No [facility] Name [facility] CONSENT/REFUSAL FOR 2022-03-05 16:10:35 Doctor [facility], [facility] Name [facility] [QL] SED RATE BY 2019-11-07 00:00:00 [facility] Physicia ns MODIFIED WESTERGREN [QL] C-REACTIVE PROTEIN 2019-11-07 00:00:00 [facility] P hysicians XRAY Knee 4+ views 2019-11-07 00:00:00 [facility] Physic ians unilateral 91468 NM Bone scan 3 phase 2019-11-07 00:00:00 [facility] Phys icians 06676 Encounters Start End Encounter Admission Attending Care Care Encounter Source Date/Time Date/Time Type Type Clinicians Facility Department ID 2021-03-17 Emergency [facility] [id number] Univers 05:49:28 ity of [facility] 2022-09-14 2022-09-14 Outpatient R DEDE HICKEY [facility] 10 [id number] Univers 10:30:00 10:30:00 DEDE HICKEY i ty of [facility] 2022-05-13 2022-05-13 Outpatient R DEDE HICKEY [facility] 10 [id number] Univers 09:00:00 09:00:00 DEDE HICKEY i ty of [facility] 2022-04-20 2022-04-20 Orders Doctor DOAN 1.2.840.114 [id number] Univers 00:00:00 00:00:00 Only Unassigned, AMELIA 350.1.13.10 [place] [facility] 4.2.7.2.686 Enoc as [phone] [facility] [address] 2022-04-14 2022-04-14 Patient Yan [facility] 1.2.840.114 [id number] Univers 00:00:00 00:00:00 Outreach [facility] 350.1.13.10 i ty of [place] 4.2.7.2.686 Enoc as JORGE?BLEA [phone] [address] MEDICAL OFFICE [facility] 2022-04-12 2022-04-12 Business Office Director Lab, Ang - Db [facility] 1.2.840.1 14 [id number] Univers 08:15:00 08:30:00 Visit Gee Li [facility] 350.1.13.10 ity of [place] 4.2.7.2.686 Enoc as JORGE?BLEA [phone] [facility] [address] [facility] OFFICE [facility] 2022-04-12 2022-04-12 Outpatient R EDDY [facility] [id number] Univers 08:15:00 08:15:00 GEE itchristy [facility] 2022-04-12 2022-04-12 [facility] 1.2.840.114 [id number] Univers 07:45:00 08:00:00 Visit [facility] 350.1.13.10 it y of [place] 4.2.7.2.686 Enoc as JORGE?BLEA [phone] [address] MEDICAL OFFICE [facility] 2022-04-08 2022-04-08 Emergency X SINGER [facility] ERT [id number] Univers 16:41:00 19:45:00 WAYNE walker of [facility] 2022-04-08 2022-04-08 Emergency Kanwal Tejeda [facility] 1.2.8 40.114 [id number] Univers 16:41:00 19:45:00 Wayne Machado 350.1.13.10 ity of [place] 4.2.7.2.[place] [id number] [place] [address] 2022-04-06 2022-04-06 Outpatient R DEDE HICKEY [facility] 10 [id number] Univers 12:37:54 23:59:00 DEDE HICKEY i ty of [facility] 2022-04-06 2022-04-06 Hospital [facility] 1.2.840.114 [id number] Univers 12:30:00 23:59:00 Encounter [facility] 350.1.13.10 ity of [place] 4.2.7.2.[place] [phone] [facility] [address] 2022-04-06 2022-04-06 [facility] 1.2.840.114 [id number] Univers 11:30:00 12:00:00 [facility] [place] 350.1.13.10 i ty of [place] 4.2.7.2.686 [place] [facility] [phone] [facility] 085 [facility] 2022-04-01 2022-04-01 Outpatient R [facility] [id number] Univers 13:15:00 13:46:04 GEE ity [facility] 2022-04-01 2022-04-01 Office [facility] 1.2.840.114 [id number] Univers 13:15:00 13:46:04 Visit [facility] 350.1.13.10 it y of [place] 4.2.7.2.686 Enoc as JORGE?BLEA [phone] [facility] [address] [facility] OFFICE [facility] 2022-03-19 2022-03-19 [facility]ill [facility] 1.2.840.114 [id number] Univers 00:00:00 00:00:00 [facility] 350.1.13.10 it y of [place] 4.2.7.2.686 Enoc as JORGE?BLEA [phone] [address] OFFICE [facility] 2022-03-05 2022-03-05 Outpatient R DEDE HICKEY [facility] 10 [id number] Univers 11:30:00 12:11:40 DEDE HICKEY i ty of [facility] 2022-03-05 2022-03-05 Office [facility] 1.2.840.114 [id number] Univers 11:30:00 12:11:40 Visit Dede CARLOS 350.1.13.10 i ty of [place] 4.2.7.2.[place] [phone] [address] 2022-03-05 2022-03-05 Orders Doctor FRANKI 1.2.840.114 [id number] Univers 00:00:00 00:00:00 Only Unassigned, AMELIA 350.1.13.10 ity of [facility] 4.2.7.2.686 Enoc as [phone] [address] 2022-02-09 2022-02-09 Outpatient R SHARI HICKEYMIStephanie [facility] 10 [id number] Univers 10:00:00 10:00:00 DEDE HICKEY i ty [facility] 2021-12-15 2021-12-15 Outpatient R DEDE HICKEY [facility] 10 [id number] Univers 10:00:00 10:15:03 DEDE HICKEY i ty [facility] 2021-12-15 2021-12-15 Office [facility] 1.2.840.114 [id number] Univers 10:00:00 10:15:03 Visit Dede GONZALEZ 350.1.13.10 i ty of [place] 4.2.7.2.[place] [id number] [address] 2021-12-15 2021-12-15 Outpatient R DEDE HICKEY [facility] 10 [id number] Univers 10:00:00 10:00:00 DEDE HICKEY i ty [facility] 2021-12-15 2021-12-15 Outpatient R DEDE HICKEY [facility] 10 [id number] Univers 10:00:00 10:00:00 DEDE HICKEY i ty [facility] 2021-12-15 2021-12-15 Telephone [facility] 1.2.791.655 [id number] Univers 00:00:00 00:00:00 [facility] 350.1.13.10 it y of [place] 4.2.7.2.686 Enoc as JORGE?BLEA [phone] Me deisi [place] [address] MEDICAL OFFICE [facility] 2021-12-14 2021-12-14 Office [facility] 1.2.840.114 [id number] Univers 07:00:00 07:28:42 Visit [facility] 350.1.13.10 it y of [place] 4.2.7.2.686 Enoc as JORGE?BLEA [phone] Me deisi [place] [address] MEDICAL OFFICE [facility] 2021-12-14 2021-12-14 Outpatient R EDDY [facility] [id number] Univers 07:00:00 07:28:42 GEE walker [facility] 2021-12-14 2021-12-14 Outpatient R EDDY [facility] [id number] Univers 07:00:00 07:00:00 GEE christy [facility] 2021-12-11 2021-12-11 [facility]ly [facility] 1.2.840.114 [id number] Univers 12:57:45 23:59:[address] [facility] 350.1.13.10 ity of [place] 4.2.7.2.686 Enoc as JORGE?BLEA [phone] [place] [address] [facility] OFFICE [facility] 2021-12-11 2021-12-11 Outpatient R KALEB [facility] [id number] Univers 13:00:00 13:15:17 [place] itchristy [facility] 2021-12-11 2021-12-11 Urgent Kaleb [facility] 1.2.840.114 [id number] Univers 13:00:00 13:15:17 [facility] 350.1.13.10 ity of [place] 4.2.7.2.686 Enoc as JORGE?BLEA [phone] Me dicedwar [place] [address] [facility] OFFICE [facility] 2021-12-03 2021-12-04 Emergency X [facility] ERT [id number] Univers 22:03:00 00:33:00 REBECCA christy [facility] 2021-12-03 2021-12-04 Emergency Critical access hospital 1.2.075.124 [id number] Univers 22:03:00 00:33:00 Sandeepnormamikayla S [place] 350.1.13.10 ity of [facility] 4.2.7.2.[place] [phone] [address] 2021-12-04 2021-12-04 Refabimael Bestgaro [facility] 1.2.840.114 [id number] Univers 00:00:00 00:00:00 [facility] 350.1.13.10 it y [facility] 4.2.7.2.686 Enoc as JORGE?BLEA [phone] [address] OFFICE [facility] 2021-11-25 2021-11-25 Telephone Edelmira [facility] 1.2.170.959 [id number] Univers 00:00:00 00:00:00 Dede GONZALEZ 350.1.13.10 i ty of [place] 4.2.7.2.[place] [phone] [address] 2021-11-11 2021-11-11 Telephone [facility] 1.2.204.510 [id number] Univers 00:00:00 00:00:00 Shichloe GONZALEZ 350.1.13.10 i ty of [facility] 4.2.7.2.[place] [id number] [address] 2021-10-29 2021-10-29 Outpatient R DEDE HICKEY [facility] 10 [id number] Univers 08:27:00 12:38:00 DEDE HICKEY i ty of [facility] 2021-10-29 2021-10-29 Hospital [facility] 1.2.840.114 [id number] Univers 08:27:00 12:38:00 Encounter Dede GONZALEZ 350.1.13.10 ity of [facility] 4.2.7.2.[place] [id number] [address] 2021-10-29 2021-10-29 Surgery [facility] 1.2.840.114 [id number] Univers 09:40:00 11:04:00 Shichloe [place] 350.1.13.10 i ty of [place] 4.2.7.2.686 [place] [id number] [facility] [address] 2021-10-29 2021-10-29 Orders Doctor FRANKI 1.2.840.114 [id number] Univers 00:00:00 00:00:00 Only Unassigned, AMELIA 350.1.13.10 ity of [place] [facility] 4.2.7.2.686 Enoc as [phone] [facility] [address] 2021-10-28 2021-10-28 Outpatient R DEDE HICKEY [facility] 10 [id number] Univers 08:15:00 08:15:00 DEDE HICKEY i ty of [facility] 2021-10-16 2021-10-16 Telephone Edelmira [facility] 1.2.813.982 [id number] Univers 00:00:00 00:00:00 Dede GONZALEZ 350.1.13.10 i ty of [place] 4.2.7.2.[place] [id number] [address] 2021-10-15 2021-10-15 Outpatient R DEDE HICKEY [facility] 10 [id number] Univers 09:00:00 09:54:58 DEDE HICKEY i ty of [facility] 2021-10-15 2021-10-15 Office Edelmira [facility] 1.2.840.114 [id number] Univers 09:00:00 09:54:58 Visit Dede GONZALEZ 350.1.13.10 i ty of [place] 4.2.7.2.686 [place] [phone] [place] [address] 2021-07-27 2021-07-27 Telephone Edelmira [facility] 1.2.840.114 [id number] Univers 00:00:00 00:00:00 [facility] 350.1.13.10 i ty of [facility] 4.2.7.2.686 [place] [id number] [facility] [address] 2021-07-24 2021-07-24 Office Edelmira [facility] 1.2.840.114 [id number] Univers 15:00:00 15:00:00 Visit Dede GONZALEZ 350.1.13.10 i ty of [place] 4.2.7.2.[place] [id number] [address] 2021-07-24 2021-07-24 Outpatient R VASILIY HICKEYStephanie [facility] 10 [id number] Univers 15:00:00 14:59:29 DEDE HICKEY i ty of [facility] 2021-07-24 2021-07-24 Outpatient R HICKEYSHARIMIStephanie [facility] 10 [id number] Univers 15:00:00 14:59:29 DEDE HICKEY i ty of [facility] 2021-07-24 2021-07-24 Orders Doctor FRANKI 1.2.840.114 [id number] Univers 00:00:00 00:00:00 Only Unassigned, AMELIA 350.1.13.10 [place] [facility]OSPITAL 4.2.7.2.686 Enoc as [phone] [address] 2021-07-24 2021-07-24 Telephone Edelmira [facility] 1.2.426.374 [id number] Univers 00:00:00 00:00:00 Dede CALDWELLADELAIDA 350.1.13.10 i ty of [place] 4.2.7.2.[place] [phone] [address] 2021-07-15 2021-07-15 Orders Doctor DOAN 1.2.840.114 [id number] Univers 00:00:00 00:00:00 Only Unassigned, AMELIA 350.1.13.10 ity [place] HOSPITAL 4.2.7.2.686 Enoc as [id number] [address] 2021-07-07 2021-07-07 Orders Doctor FRANKI 1.2.840.114 [id number] Univers 00:00:00 00:00:00 Only Unassigned, AMELIA 350.1.13.10 ity [place] HOSPITAL 4.2.7.2.686 Enoc as [id number] [address] 2021-07-02 2021-07-02 Business Office Director [facility] 1.2 .840.114 [id number] Univers 10:00:00 10:15:00 Visit Sahil Maricel GONZALEZ 350.1.13. 10 ity of [place] 4.2.7.2.686 [facility] [phone] [facility] [address] 2021-07-02 2021-07-02 Outpatient R SAHILEMJENNIFER [facility] [id number] Univers 10:00:00 10:00:00 LEANDRAMARICEL TEAGUE ity [facility] 2021-07-02 2021-07-02 Orders Doctor FRANKI 1.2.840.114 [id number] Univers 00:00:00 00:00:00 Only Unassigned, AMELIA 350.1.13.10 ity of [place] [facility] 4.2.7.2.686 Enoc as [id number] [facility] [address] 2021-07-01 2021-07-01 Outpatient R DEDE HICKEY [facility] 10 [id number] Univers 07:53:11 23:59:00 DEDE HICKYE i [facility] 2021-07-01 2021-07-01 [facility] 1.2.840.114 [id number] Univers 07:53:11 23:59:00 Encounter Dede GONZALEZ 350.1.13.[address] [facility] 4.2.7.2.686 [facility] [phone] [facility] [address] 2021-07-01 2021-07-01 Orders Doctor DOAN 1.2.840.114 [id number] Univers 00:00:00 00:00:00 Only Unassigned, AMELIA 350.1.13.10 ity of [place] [facility] 4.2.7.2.686 Enoc as [id number] [facility] [address] 2021-06-23 2021-06-23 Outpatient R DEDE HICKEY [facility] 10 [id number] Univers 00:00:00 00:00:00 DEDE HICKEY i [facility] 2021-06-18 2021-06-18 Business Office Director Therapist, [facility] Respiratory [facility] 1.2.840.114 [id number] Univers 12:30:00 14:00:00 Visit Donnie Do 350.1.13. 10 ity of [place] 4.2.7.2.686 [place] [phone] [facility] [address] 2021-06-18 2021-06-18 Outpatient R HI [facility] [id number] Univers 12:30:00 12:30:00 DONNIE ity of [facility] 2021-06-18 2021-06-18 Orders Doctor DOAN 1.2.840.114 [id number] Univers 00:00:00 00:00:00 Only Unassigned, AMELIA 350.1.13.10 ity of [place] [facility] 4.2.7.2.686 Enoc as [phone] [facility] [address] 2021-06-18 2021-06-18 Telephone Edelmira [facility] 1.2.273.447 [id number] Univers 00:00:00 00:00:00 Dede GONZALEZ 350.1.13.10 i ty of [place] 4.2.7.2.686 [place] [facility] [phone] [place] de[place] RENDON [address] BUILDING 2021-06-16 2021-06-16 Letter FRANKI [place] 1.2.840.114 [id number] Univers 00:00:00 00:00:00 (Out) Alaina CISNEROS 350.1.13.10 it y of [facility] 4.2.7.2.686 Enoc as [phone] [facility] [address] 2021-06-15 2021-06-15 Laboratory Only, Ang Db Test [facility] 1.2.8 40.114 [id number] Univers 10:15:00 10:30:00 Only [facility] 350.1.13.10 ity of [place] 4.2.7.2.686 Enoc as JORGE?BLEA [phone] [place] dicedwar KNEY [address] MEDICAL OFFICE BUILDING 2021-06-15 2021-06-15 Outpatient R LUIS [facility] [id number] Univers 10:15:00 10:15:00 PRISCILLA sethy o f [facility] 2021-06-12 2021-06-12 Outpatient R DEDE HICKEY [facility] 10 [id number] Univers 09:00:00 09:49:55 EDELMIRA DEDE i ty of [facility] 2021-06-12 2021-06-12 Office Edelmira [facility] 1.2.840.114 [id number] Univers 09:00:00 09:49:55 Visit Dede GONZALEZ 350.1.13.10 i ty of [facility] 4.2.7.2.[place] [phone] Me dical NAL 085 [facility] 2021-05-20 2021-05-20 Business Office Director Lab, Ang - [facility] 1.2.840.1 14 [id number] Univers 09:15:00 09:30:00 Visit Li [facility] 350.1.13.10 ity of [place] 4.2.7.2.686 Enoc as JORGE?BLEA [phone] [place] dical [facility] [address] [facility] OFFICE [facility] 2021-05-20 2021-05-20 Outpatient Kerry LI [facility] [id number] Univers 09:15:00 09:15:[address] [facility] 2021-05-20 2021-05-20 [facility] 1.2.840.114 [id number] Univers 08:30:00 08:45:00 Visit [facility] 350.1.13.10 it y of [place] 4.2.7.2.686 Enoc as JORGE?BLEA [phone] [place] dicedwar [facility] [address] [facility] OFFICE [facility] 2021-05-20 2021-05-20 Outpatient Kerry LI [facility] [id number] Univers 08:30:00 08:30:[address] [facility] 2021-05-20 2021-05-20 [facility]ill [facility] 1.2.840.114 [id number] Univers 00:00:00 00:00:00 [facility] 350.1.13.10 it y of [place] 4.2.7.2.686 Enoc as JORGE?BLEA [phone] [place] dical [facility] [address] [facility] OFFICE [facility] 2021-05-19 2021-05-19 Telephone [facility] 1.2.606.419 [id number] Univers 00:00:00 00:00:00 [facility] 350.1.13.10 it y of [place] 4.2.7.2.686 Enoc as JORGE?BLEA [phone] [facility] [address] MEDICAL OFFICE [facility] 2021-05-05 2021-05-05 [facility]phone [facility] 1.2.314.719 [id number] Univers 00:00:00 00:00:00 Gee HEALTH 350.1.13.10 it y of [place] 4.2.7.2.686 Enoc as JORGE?BLEA [id number] [address] MEDICAL OFFICE [facility] 2021-05-04 2021-05-04 [facility] 1.2.840.114 [id number] Univers 13:50:22 23:59:00 Encounter Gee [facility] 350.1.13.10 ity of [place] 4.2.7.2.686 Enoc as JORGE?BLEA [phone] [facility] [address] [facility] OFFICE [facility] 2021-05-04 2021-05-04 Outpatient R [facility] [id number] Univers 13:30:00 13:50:28 [facility] 2021-05-04 2021-05-04 Office [facility] 1.2.840.114 [id number] Univers 13:30:00 13:45:00 Visit [facility] 350.1.13.10 it y of [place] 4.2.7.2.686 Enoc as JORGE?BLEA [id number] [address] OFFICE [facility] 2021-05-04 2021-05-04 Outpatient R [facility] [id number] Univers 13:30:00 13:30:00 GEE christy [facility] 2021-04-21 2021-04-21 Outpatient R SANDRA [facility] [id number] Univers 08:40:00 08:40:00 KLEBER walker [facility] 2021-04-21 2021-04-21 Imm/Inj Nurse, Adc Pob Immunization [facility] 1.2.840.114 [id number] Univers 08:25:43 08:26:40 Visit Kleber Flores 350.1.13 .10 ity of [place] 4.2.[place].2.[place] [phone] [facility] 421 [facility] 2021-04-07 2021-04-07 Office [facility] 1.2.840.114 [id number] Univers 09:21:39 09:36:39 Visit [facility] 350.1.13.10 it y of [place] 4.2.7.2.686 Enoc as JORGE?BLEA [id number] [address] OFFICE [facility] 2021-04-07 2021-04-07 Outpatient R [facility] [id number] Univers 09:30:00 09:30:00 GEE walker [facility] 2021-03-23 2021-03-23 Refill [facility] 1.2.840.114 [id number] Univers 00:00:00 00:00:00 [facility] 350.1.13.10 it y of [place] 4.2.7.2.686 Enoc as PROFESSIO [phone] [address] ONE 2021-03-19 2021-03-19 Outpatient R [facility] [id number] Univers 13:30:10 23:59:00 GEE itchristy [facility] 2021-03-19 2021-03-19 [facility] 1.2.840.114 [id number] Univers 13:30:10 23:59:00 Encounter Gee GONZALEZ 350.1.13.10 ity of [place] 4.2.7.2.[place] [id number] [address] 2021-03-11 2021-03-11 Telephone [facility] 1.2.725.084 [id number] Univers 00:00:00 00:00:00 Gee [facility] 350.1.13.10 it y of [place] 4.2.7.2.686 Enoc as Jorge?Blea [phone] [address] Office [facility] 2021-03-04 2021-03-04 [facility] 1.2.840.114 [id number] Univers 10:15:00 23:59:00 Encounter [facility] 350.1.13.10 ity of [place] 4.2.7.2.686 Enoc as Jorge?Blea [phone] [place] de[place] [address] Medical Office Building 2021-03-04 2021-03-04 Office [facility] 1.2.840.114 [id number] Univers 09:21:44 10:12:19 Visit Gee [facility] 350.1.13.10 it y of [place] 4.2.7.2.686 Enoc as Jorge?Blea [phone] [facility] garima 044 [facility] Office [facility] 2021-03-04 2021-03-04 Outpatient R [facility] [id number] Univers 09:30:00 09:30:00 GEE walker [facility] 2021-02-25 2021-02-25 Office [facility] 1.2.840.114 [id number] Univers 10:41:23 12:10:58 Visit Brittni Washburn 350.1.13.10 i ty of [place] 4.2.7.2.686 Enoc as Jorge?Blea [id number] [address] Office [facility] 2021-02-25 2021-02-25 Outpatient R MANDO [facility] [id number] Univers 11:00:00 11:00:00 BRITTNI walker [facility] 2021-02-23 2021-02-23 Emergency [facility] 1.2.378.506 [id number] Univers 13:44:00 18:27:00 Wayne Gonzalez 350.1.13.10 i ty of [place].2.[place].2.[place] [id number] [facility] [address] 2021-01-12 2021-01-12 Refill [facility] 1.2.840.114 [id number] Univers 00:00:00 00:00:00 [facility]ee [facility] 350.1.13.10 it y of [place] 4.2.7.2.686 Enoc as Professio [phone] [address] Office Building One 2020-08-02 2020-08-02 Outpatient [facility] [id number] Univers 09:30:00 09:30:00 [facility] 2020-07-12 2020-07-12 Outpatient Kerry TINAJERO, [facility] [id number] Univers 09:35:00 09:35:[address] [facility] 2020-06-17 2020-06-17 Outpatient Kerry LI, [facility] [id number] Univers 09:00:00 09:00:[address] [facility] 2020-03-17 2020-03-17 Outpatient Kerry LI, [facility] [id number] Univers 08:00:00 08:00:00 [facility] 2020-02-20 2020-02-20 Outpatient Kerry CULP, [facility] [id number] Univers 13:15:00 13:15:00 [facility] 2020-02-13 2020-02-13 Outpatient Kerry LI, [facility] [id number] Univers 00:00:00 00:00:00 [facility] 2020-01-24 2020-01-24 Outpatient Kerry LI, [facility] [id number] Univers 14:00:00 14:00:00 [facility] 2020-01-10 2020-01-10 Outpatient Kerry LI, [facility] [id number] Univers 08:15:00 08:15:00 [facility] 2020-01-08 2020-01-08 Outpatient Kerry LI, [facility] [id number] Univers 00:00:00 00:00:00 [facility] 2019-12-31 2019-12-31 KALPANA Collado PM&R [facility] [id number] [place] 13:00:00 13:00:00 [facility] M.D[facility] 2019-12-26 2019-12-26 Outpatient Kerry CULP, [facility] [id number] Univers 14:00:00 14:00:00 [facility] 2019-12-06 2019-12-06 Outpatient R LITA, [facility] [id number] Univers 09:00:00 09:00:[address] [facility] 2019-11-22 2019-11-22 Outpatient R ROBIN, [facility] [id number] Univers 11:00:00 11:00:[address] [facility] 2019-11-16 2019-11-16 Outpatient R AMERICA, [facility] [id number] Univers 09:15:00 09:15:00 ALLEN walker o f [facility] 2019-11-14 2019-11-14 Outpatient [facility] [id number] Univers 09:30:00 09:30:00 [facility] 2019-11-07 2019-11-07 KALPANA Collado PM&R [facility] [id number] [place] 14:00:00 14:00:00 t; Jaimee GORDILLO Ph RAND [place] M.D. 2019-11-06 2019-11-06 Outpatient Kerry KELLY, [facility] [id number] Univers 09:41:48 09:41:00 [facility] 2019-10-23 2019-10-23 Outpatient R ROBIN, [facility] [id number] Univers 12:29:38 12:32:00 [facility] 2019-10-15 2019-10-15 KALPANA Collado PM&R [facility] [id number] [place] 13:00:00 13:00:00 t; Jaimee GORDILLO Ph RAND [place] M.D. 2019-10-03 2019-10-03 Outpatient R ROBIN, [facility] [id number] Univers 11:30:00 11:30:[address] [facility] 2019-08-30 2019-08-30 Outpatient R EDDY, [facility] [id number] Univers 08:15:00 08:15:[address] [facility] 2019-08-08 2019-08-08 Emergency X CHAOMAN, [facility] ERT [id number] Univers 11:39:52 13:52:[address] [facility] 2019-08-07 2019-08-07 Outpatient Kerry LI, [facility] [id number] Univers 08:00:00 08:00:00 GEE walker [facility] 2019-04-16 2019-04-16 Outpatient Kerry CHAPIN [facility] [id number] Univers 16:15:00 16:15:00 KARTHIK walker [facility] 2019-01-16 2019-01-16 Business Office Director 1, Adc Lab [facility] [id number] Univers 11:17:39 11:32:39 Visit Karthik Chapinton 350.1. 13.10 [place] 4.2.7.2.686 [facility] [id number] [address] 2019-01-16 2019-01-16 Orders Doctor FRANKI [id number] Univers 00:00:00 00:00:00 Only Unassigned, AM[place] 350[place]13.10 [place] [facility] 4.2.7.2.686 [facility] [id number] [address] Results Test Description Test Time Test Comments Results Result Comments Source POCT GLUCOSE (AUTOMATED) 2022-04-09 00:24:52 Test Item Value Reference Range Interpretation Comme nts POCT GLU (test code = 8627298609) 253 mg/dL 70-110 H Lab Interpretation (test code = 39471-0) [facility]normal [facility]09 00:22:12 Test Item Value Reference Range Interpretation Comments HGB A1C (test code = 6.0 % 4.0-5.7 H 4548-4) VINCE (test code = VINCE) Reference RangesNormal: <5.7%Prediabetes: 5.7 - 6.4%Diabetes: > 6.5% Lab Interpretation (test Abnormal code = 34477-3) [facility] [id number] 23:49:51 Test Item Value Reference Interpretation Comments Range TROPONIN I (test 0.004 ng/mL See_Comment [Automated code = 6871932267) message] The system which generated this result transmitted reference range : <=0.034. The reference range was not used to interpret this result as normal/abnormal . VINCE (test code = Reference (Normal) VINCE) Range (defined by the 99th percentile reference limit): <= 0.034 ng/mL Note: Cardiac troponin begins to rise 3-4 hours after the onset of ischemia. Repeat in 4-6 hours if the sample was drawn within 3-4 hours of the onset of the symptom and found normal. Diagnosis of myocardial injury is made with acute changes in cTn concentrations with at least one serial sample above the 99th percentile upper reference limit (URL), taken together with the patient's clinical presentation. Biotin has been reported to cause a negative bias, interpret results relative to patient's use of biotin. Lab Interpretation Normal (test code = 82493-3) [facility]22-[facility]-08 23:49:51 Test Item Value Reference Range Interpretation Comments POCT GLU (test code = 5154560614) 269 mg/dL 70-110 H Lab Interpretation (test code = Abnormal 38191-6) [facility] [id number] 23:46:50 Test Item Value Reference Range Interpretation Comments NT-proBNP (test code 207 pg/mL See_Comment [Autom ated = 4226340101) message] The system which generated this result transmitted reference range : <=450. The reference range was not used to interpret this result as normal/abnormal . VINCE (test code = VINCE) Biotin has been reported to cause a negative bias, interpret results relative to patient's use of biotin. Lab Interpretation Normal (test code = 29214-3) [facility] 23:38:54 Test Item Value Reference Range Interpretation Comments MAGNESIUM (test code = 1828695376) 1.9 mg/dL 1.7-2.4 Lab Interpretation (test code = Normal 80341-1) [facility] (04573)2022-04-08 23:38:34 Test Item Value Reference Range Interpretation Comments NA (test code = 138 mmol/L 135-145 7291937290) K (test code = 4.2 mmol/L 3.5-5.0 2705952226) CL (test code = 104 mmol/L 98-108 8221412195) CO2 TOTAL (test code = 23 mmol/L 23-31 1443989927) AGAP (test code = 2-16 4787788701) BUN (test code = 14 mg/dL 7-23 4154323018) GLUCOSE (test code = 372 mg/dL 70-110 H 7862063538) CREATININE (test code = 0.67 mg/dL 0.50-1.04 9910426378) TOTAL BILI (test code = 0.5 mg/dL 0.1-1.2 1762875409) CALCIUM (test code = 8.9 mg/dL 8.6-10.6 6356566456) T PROTEIN (test code = 7.0 g/dL 6.3-8.2 2384948632) ALBUMIN (test code = 4.5 g/dL 3.5-5.0 6858617084) ALK PHOS (test code = 110 U/L 34-122 7597125576) ALTv (test code = 29 U/L 5-35 1742-6) AST(SGOT) (test code = 24 U/L 13-40 9028565069) eGFR (test code = mL/min/1.73m2 0226669504) VINCE (test code = VINCE) Association of Glomerular Filtration Rate (GFR) and Staging of Kidney Disease* + --+ --+ ------+| GFR (mL/min/1.73 m2) ?| With Kidney Damage ?| ?Without Kidney Damage+ --------+ --------+ +| ?>90 ?| ?Stage one ?| ? Normal ?+ ---+ ---+ -------+| ?60-89 ?| ?Stage two ?| ? Decreased GFR ? + --+ --+ ------+| ?30-59 ?| ?Stage three ?| ? Stage three ? + --+ --+ ------+| ?15-29 ?| ?Stage four ? | ? Stage four ?+ ---+ ---+ -------+| ?<15 (or dialysis) ? ?| ?Stage five ? | ? Stage five ?+ ---+ ---+ -------+ *Each stage assumes the associated GFR level has been in effect for at least three months. ?Stages 1 to 5, with or without kidney disease, indicate chronic kidney disease. Notes: Determination of stages one and two (with eGFR >59mL/min/1.73 m2) requires estimation of kidney damage for at least three months as defined by structural or functional abnormalities of the kidney, manifested by either:Pathological abnormalities or Markers of kidney damage (including abnormalities in the composition of the blood or urine or abnormalities in imaging tests). Lab Interpretation Abnormal (test code = 14751-5) [facility] 23[facility]38:14 Test Item Value Reference Range Interpretation Comments LIPASE (test code = 0371313457) 203 U/L 0-220 Lab Interpretation (test code = Normal 65040-9) [facility] WITH [id number] 23:25:11 Test Item Value Reference Range Interpretation Comments WBC (test code = See_Comment [Automated 3390-2) message] The sy stem which generated this result transmitted reference range : 4.30 - 11.10 10*3/?L. The reference range was not used to interpret this result as normal/abnormal . RBC (test code = See_Comment [Automated 399-8) message] The sy stem which generated this result transmitted reference range : 3.93 - 5.25 10*6/?L. The reference range was not used to interpret this result as normal/abnormal . HGB (test code = 14.4 g/dL 11.6-15.0 718-7) HCT (test code = 42.9 % 35.7-45.2 4544-3) MCV (test code = 87.0 fL 80.6-95.5 787-2) MCH (test code = 29.2 pg 25.9-32.8 785-6) MCHC (test code = 33.6 g/dL 31.6-35.1 786-4) RDW-SD (test code = 40.6 fL 39.0-49.9 53826-0) RDW-CV (test code = 12.8 % 12.0-15.5 788-0) PLT (test code = See_Comment [Automated 437-3) message] The sy stem which generated this result transmitted reference range : 166 - 358 10*3/ ?L. The reference r radha was not used to interpret this result as normal/abnormal . MPV (test code = 10.6 fL 9.5-12.9 49372-7) NRBC/100 WBC (test See_Comment [Automat ed code = 2660892103) message] The system which generated this result transmitted reference range : 0.0 - 10.0 /100 WBCs. The refer ence range was not u sed to interpret th is result as normal/abnormal . NRBC x10^3 (test code See_Comment [Auto mated = 2629004347) message] The s ystem which generated this result transmitted reference range : 10*3/?L. The reference range was not used to interpret this result as normal/abnormal . GRAN MAT (NEUT) % 84.5 % (test code = 770-8) IMM GRAN % (test code 1.00 % = 2692086558) LYMPH % (test code = 11.3 % 736-9) MONO % (test code = 2.8 % 5905-5) EOS % (test code = 0.0 % 713-8) BASO % (test code = 0.4 % 706-2) GRAN MAT x10^3(ANC) 9.23 10*3/uL 1.88-7.09 H (test code = 0583555026) IMM GRAN x10^3 (test 0.11 10*3/uL 0.00-0.06 H code = 9270344221) LYMPH x10^3 (test code 1.24 10*3/uL 1.32-3.29 L = 731-0) MONO x10^3 (test code 0.31 10*3/uL 0.33-0.92 L = 742-7) EOS x10^3 (test code = 0.03-0.39 L 711-2) BASO x10^3 (test code 0.04 10*3/uL 0.01-0.07 = 704-7) Lab Interpretation Abnormal (test code = 38987-5) [facility] GLUCOSE(AGE >30DAYS)2022-04-08 23:12:00 Test Item Value Reference Range Interpretation Comments POCT Glu (age>30days) (test code = 325 mg/dL 70-110 A 3342) Lab Interpretation (test code = Abnormal 73145-4) [facility] GLUCOSE (AUTOMATED)2022-04-08 23:03:20 Test Item Value Reference Range Interpretation Comments POCT GLU (test code = 6400237056) 325 mg/dL 70-110 H Lab Interpretation (test code = Abnormal 65718-7) [facility]"
[2022-04-24] MEDS ORDERED: METHYLPREDNISOLONE 125 MG INJ ONE (20:27)
[2022-04-24] MEDS ORDERED: IPRATROPIUM BROM 0.5MG/2.5ML ONE (20:27)
[2022-04-24] MEDS ORDERED: LEVALBUTEROL 1.25 MG/3 ML NEB ONE (20:27)
--- NOTE | 2022-04-24 21:01 | RAD REPORT ---
EXAM DESCRIPTION: RAD - Chest Single View - 04/24/2022 8:52 pm CLINICAL HISTORY: SOB COMPARISON: 04/03/2021 FINDINGS: Lines: None. Lungs: No evidence of edema or pneumonia. Pleural: No significant pleural effusions or pneumothorax. Cardiac: The heart size is within normal limits. Mediastinum: Within normal limits. Bones: No acute fractures. Other: None IMPRESSION: No acute cardiopulmonary disease.
[2022-04-24 22:02] LABS: Absolute Lymphocytes (CBC) 2.6 K/uL (0.7-4.9); Hematocrit 39.9 % (36.0-45.0); Lymphocytes % 30.6 % (15.3-44.8); MCV 87.6 fL (80-100); MPV 8.7 fL (7.6-11.3); Magnesium 1.9 mg/dL (1.6-2.4); Potassium 3.6 mmol/L (3.5-5.1); RBC Red Blood Cell Count 4.56 M/uL (3.86-4.86); Troponin High Sensitivity 5.2 pg/mL (<58.9)
[2022-04-24 22:15] LABS: Protime INR 0.96
[2022-04-24 22:17] LABS: SARS-COV-2 RT PCR NEGATIVE (NEGATIVE)
--- NOTE | 2022-04-24 22:51 | ER ---
Nurse's Notes [facility] Name: Joya Montilla Age: 76 yrs Sex: Female : 1945 Arrival Date: 04/24/2022 Time: 20:12 Bed 15 Private MD: Diagnosis: Cough;Wheezing Presentation: 04/24 20:17 Chief complaint: EMS states: SOB, cough, fatigue for 1 week. Ebola Screen: No symptoms eh3 or risks identified at this time. Risk Assessment: Do you want to hurt yourself or someone else? Patient reports no desire to harm self or others. Onset of symptoms was April 17, 2022. 20:17 Method Of Arrival: EMS: [facility] 20:17 Acuity: [place] 3 3 20:20 Coronavirus screen: Vaccine status: Patient reports receiving the 2nd dose of the covid eh3 vaccine. Initial Sepsis Screen: Does the patient meet any 2 criteria? No. Patient's initial sepsis screen is negative. Does the patient have a suspected source of infection? No. Patient's initial sepsis screen is negative. Triage Assessment: 20:18 General: Appears distressed, uncomfortable, Behavior is cooperative, appropriate for eh3 age, anxious. Neuro: Level of Consciousness is awake, alert, obeys commands, Oriented to person, place, time, situation. Cardiovascular: Capillary refill < 3 seconds Patient's skin is warm and dry. Respiratory: Reports shortness of breath cough that is non-productive, labored breathing Onset: The symptoms/episode began/occurred 1 week ago, the patient has moderate shortness of breath. GI: No signs and/or symptoms were reported involving the gastrointestinal system. Abdomen is round non-distended. : No signs and/or symptoms were reported regarding the genitourinary system. Derm: No signs and/or symptoms reported regarding the dermatologic system. Musculoskeletal: No signs and/or symptoms reported regarding the musculoskeletal system. Circulation, motion, and sensation intact. Range of motion: intact in all extremities. Historical: - Allergies: 20:18 No Known Allergies; eh3 - PMHx: 20:18 SVT; Osteoporosis; eh3 - Immunization history:: Adult Immunizations up to date. - Social history:: Smoking status: Patient denies any tobacco usage or history of. Screenin:20 Abuse screen: Denies threats or abuse. Denies injuries from another. Nutritional eh3 screening: No deficits noted. Tuberculosis screening: No symptoms or risk factors identified. Fall Risk None identified. Assessment: 20:20 Reassessment: No changes from previously documented assessment. See triage assessment. eh3 Cardiovascular: Rhythm is sinus rhythm. Respiratory: Airway is patent Respiratory effort is even, labored, Respiratory pattern is regular, symmetrical, Breath sounds are clear bilaterally. 20:20 Pain: Denies pain. eh3 21:30 Reassessment: Patient appears in no apparent distress at this time. Patient and/or 3 family updated on plan of care and expected duration. Pain level reassessed. Patient is alert, oriented x 3, equal unlabored respirations, skin warm/dry/pink. 22:30 Reassessment: Patient appears in no apparent distress at this time. Patient and/or 3 family updated on plan of care and expected duration. Pain level reassessed. Patient is alert, oriented x 3, equal unlabored respirations, skin warm/dry/pink. Vital Signs: 20:20 BP 146 / 97; Pulse 91; Resp 22; Temp 98.3(O); Pulse Ox 92% on R/A; eh3 21:30 BP 146 / 76; Pulse 107; Resp 22; Pulse Ox 97% on Nebulizer Mask; eh3 22:30 BP 125 / 66; Pulse 105; Resp 19; Pulse Ox 93% on R/A; eh3 ED Course: 20:12 Patient arrived in ED. mw2 20:15 Lloyd Verma PA is PHCP. cp 20:15 Rex Banda MD is Attending Physician. cp 20:16 Laura Mendoza, SHAUN is Primary Nurse. eh3 20:18 Triage completed. eh3 20:18 Arm band placed on right wrist. eh3 20:20 Patient has correct armband on for positive identification. Bed in low position. Call 3 light in reach. Side rails up X2. Adult w/ patient. Client placed on continuous cardiac and pulse oximetry monitoring. NIBP monitoring applied. Door closed. Noise minimized. Warm blanket given. Pillow given. 20:20 Maintain EMS IV. Dressing intact. Good blood return noted. Site clean \T\ dry. Gauge \T\ eh 3 site: 20g LAC. 20:53 XRAY Chest (1 view) In Process Unspecified. EDMS 23:09 No provider procedures requiring assistance completed. IV discontinued, intact, eh3 bleeding controlled, No redness/swelling at site. Pressure dressing applied. Administered Medications: 20:40 Drug: Xopenex (levalbuterol) (3) 1.25 mg Route: Inhalation; eh3 20:40 Drug: AtroVENT (ipratropium) Aerosol 0.5 mg Route: Inhalation; eh3 21:38 Not Given (Patient Refused): SOLU-Medrol (methylPrednisoLONE) 125 mg IVP once eh3 Medication: 23:10 VIS not applicable for this client. eh3 Outcome: 22:50 Discharge ordered by . cp 23:10 Discharged to home ambulatory, with family. eh3 23:10 Condition: stable 23:10 Discharge instructions given to patient, family, Instructed on discharge instructions, follow up and referral plans. medication usage, Demonstrated understanding of instructions, follow-up care, medications, Prescriptions given X 3. 23:11 Patient left the ED. eh3 Signatures: Dispatcher [employer] EDNV Lloyd Verma PA PA cp [place], MyKena mw2 Laura Mendoza, RN RN eh3
--- NOTE | 2022-04-24 22:51 | EDPHYS ---
Physician Documentation [facility] Name: Joya Montilla Age: 76 yrs Sex: Female : 1945 Arrival Date: 04/24/2022 Time: 20:12 Bed 15 Private MD: ED Physician Rex Banda HPI: 04/24 20:20 This 76 yrs old Female presents to ER via EMS with complaints of Shortness Of cp Breath. 20:20 The patient has shortness of breath at rest. cp 20:20 Onset: The symptoms/episode began/occurred 1 week(s) ago, and became worse 2 day(s) cp ago. Duration: The symptoms are continuous, and are steadily getting worse. Associated signs and symptoms: Pertinent negatives: chest pain, productive cough, diaphoresis, fever, vomiting. Severity of symptoms: in the emergency department the symptoms are unchanged despite home interventions. The patient has experienced similar episodes in the past, a few times, prescribed oral steroids but caused blood glucose to become elevated so she will not take oral steroids again. Patient denies PMHX for DM, COPD and/or Asthma. Historical: - Allergies: 20:18 No Known Allergies; eh3 - PMHx: 20:18 SVT; Osteoporosis; eh3 - Immunization history:: Adult Immunizations up to date. - Social history:: Smoking status: Patient denies any tobacco usage or history of. ROS: 20:25 Constitutional: Negative for body aches, chills, fever, poor PO intake. cp 20:25 Eyes: Negative for injury, pain, redness, and discharge. cp 20:25 ENT: Negative for drainage from ear(s), ear pain, sore throat, difficulty swallowing, difficulty handling secretions. 20:25 Cardiovascular: Negative for chest pain, edema, palpitations. 20:25 Respiratory: Positive for cough, with no reported sputum, shortness of breath, at rest. wheezing. 20:25 Abdomen/GI: Negative for abdominal pain, vomiting, diarrhea, constipation. 20:25 Neuro: Negative for altered mental status, dizziness, headache, loss of consciousness, syncope, weakness. 20:25 All other systems are negative. Exam: 20:30 Constitutional: The patient appears in no acute distress, alert, awake, cp non-diaphoretic, non-toxic, well developed, well nourished. 20:30 Head/Face: Normocephalic, atraumatic. cp 20:30 Eyes: Periorbital structures: appear normal, Conjunctiva: normal, no exudate, no injection, Sclera: no appreciated abnormality, Lids and lashes: appear normal, bilaterally. 20:30 ENT: External ear(s): are unremarkable, Ear canal(s): are normal, clear, TM's: dullness, bilaterally, Nose: is normal, Mouth: Lips: moist, Oral mucosa: pink and intact, moist, Posterior pharynx: Airway: no evidence of obstruction, patent, Tonsils: are normal in appearance, swelling, is not appreciated, erythema, is not appreciated, exudate, is not appreciated. 20:30 Neck: ROM/movement: is normal, is supple, without pain, no range of motions limitations, no meningismus. 20:30 Chest/axilla: Inspection: normal, Palpation: is normal, no crepitus, no tenderness. 20:30 Cardiovascular: Rate: tachycardic, Rhythm: regular, Edema: is not appreciated, JVD: is not appreciated. 20:30 Respiratory: the patient does not display signs of respiratory distress, Respirations: normal, no use of accessory muscles, no retractions, labored breathing, is not present, Breath sounds: decreased breath sounds, that are mild, throughout, stridor, is not appreciated, wheezing: that is mild, is heard diffusely. 20:30 Abdomen/GI: Inspection: abdomen appears normal, Palpation: abdomen is soft and non-tender, in all quadrants. 20:30 Back: pain, is absent, ROM is normal. 20:30 Skin: cellulitis, is not appreciated, no rash present. 20:30 Neuro: Orientation: to person, place \T\ time. Mentation: is normal, Cerebellar function: is grossly normal, Motor: moves all fours, strength is normal, Sensation: is normal. Vital Signs: 20:20 BP 146 / 97; Pulse 91; Resp 22; Temp 98.3(O); Pulse Ox 92% on R/A; eh3 21:30 BP 146 / 76; Pulse 107; Resp 22; Pulse Ox 97% on Nebulizer Mask; eh3 22:30 BP 125 / 66; Pulse 105; Resp 19; Pulse Ox 93% on R/A; eh3 MDM: 20:38 Patient medically screened. cp 21:00 Differential diagnosis: Anemia asthma, Bronchitis CHF exacerbation, Chronic Obstructive cp Pulmonary Disease Myocardial Infarction pneumonia, Pneumothorax pulmonary edema, Pulmonary Embolism Unstable Angina. 22:50 Data reviewed: vital signs, nurses notes, lab test result(s), EKG, radiologic studies, cp plain films, and as a result, I will discharge patient. 22:50 Test interpretation: by ED physician or midlevel provider: ECG, plain radiologic cp studies. Counseling: I had a detailed discussion with the patient and/or guardian regarding: the historical points, exam findings, and any diagnostic results supporting the discharge/admit diagnosis, lab results, radiology results, the need for outpatient follow up, a family practitioner, to return to the emergency department if symptoms worsen or persist or if there are any questions or concerns that arise at home. Response to treatment: the patient's symptoms have markedly improved after treatment. ED course: VSS. Patient reports symptoms markedly improved after treatment. Will discharge to home for continued monitoring. 04/24 20:16 Order name: Basic Metabolic Panel; Complete Time: 22:25 cp 12/10 20:16 Order name: CBC with Diff; Complete Time: 22:25 cp 12/10 20:16 Order name: Magnesium; Complete Time: 22:25 cp 12/10 20:16 Order name: NT PRO-BNP; Complete Time: 22:25 cp 12/10 20:16 Order name: PT-INR; Complete Time: 22:25 cp 12/10 20:16 Order name: Troponin HS; Complete Time: 22:25 cp 12/10 20:16 Order name: XRAY Chest (1 view); Complete Time: 21:51 cp 12/10 21:52 Interpretation: Report review. cp 12/10 20:16 Order name: EKG; Complete Time: 20:17 cp 12/10 20:16 Order name: Cardiac monitoring; Complete Time: 21:01 cp 12/10 20:16 Order name: EKG - Nurse/Tech; Complete Time: 20:43 cp 12/10 20:16 Order name: COVID-19/FLU A+B; Complete Time: 22:25 cp 12/10 20:16 Order name: IV Saline Lock; Complete Time: 20:17 cp 12/10 20:16 Order name: Labs collected and sent; Complete Time: 21:38 cp 12/10 20:16 Order name: O2 Per Protocol; Complete Time: 21:01 cp 04/24 20:16 Order name: O2 Sat Monitoring; Complete Time: 21:01 cp Administered Medications: 20:40 Drug: Xopenex (levalbuterol) (3) 1.25 mg Route: Inhalation; eh3 20:40 Drug: AtroVENT (ipratropium) Aerosol 0.5 mg Route: Inhalation; eh3 21:38 Not Given (Patient Refused): SOLU-Medrol (methylPrednisoLONE) 125 mg IVP once eh3 Disposition Summary: 04/24/22 22:50 Discharge Ordered Location: Home cp Problem: an acute exacerbation cp Symptoms: have improved cp Condition: Stable cp Diagnosis - Cough cp - Wheezing cp Followup: cp - With: Private Physician - When: 2 - 3 days - Reason: Recheck today's complaints Discharge Instructions: - Discharge Summary Sheet cp - Shortness of Breath, Adult cp - Cough, Adult cp Forms: - Medication Reconciliation Form cp - Thank You Letter cp - Antibiotic Education cp - Prescription Opioid Use cp Prescriptions: - NEBULIZER MACHINE - inhale 1 ampule by NEBULIZATION route every 4-6 hours As needed please add 2 cp sets of adult tubing with mask; 1 Device; Refills: 0, Product Selection Permitted - Flovent HFA 110 mcg/actuation Inhalation HFA aerosol inhaler - inhale 1 puff by INHALATION route 2 times per day; 1 Inhaler; Refills: 0, cp Product Selection Permitted - Bromfed DM 2-30-10 mg/5 mL Oral syrup - take 10 milliliter by ORAL route every 6 hours; 180 milliliter; Refills: 0, cp Product Selection Permitted - Albuterol Sulfate 2.5 mg /3 mL (0.083 %) Inhalation Solution for Nebulization - inhale 1 unit by NEBULIZATION route every 8 hours As needed; 1 box; Refills: 0, cp Product Selection Permitted Signatures: Dispatcher [employer] EDMS Lloyd Verma PA PA cp Laura Mendoza RN RN eh3 Corrections: (The following items were deleted from the chart) 04/25 21:40 12 21:00 This 76 yrs old Female presents to ER via EMS with complaints of cp Shortness Of Breath. cp
[2022-04-25 01:56] VITALS: TEMP 98.3
[2022-04-25 01:58] VITALS: BP 125/66; O2SAT 93
--- NOTE | 2022-04-26 14:59 | EKG ---
Test Date: 2022-04-24 Test Time: 20:34:48 Train Brake Operator: [place] MEASUREMENT RESULTS: Intervals: Rate: 80 CO: 138 QRSD: 74 QT: 412 QTc: 475 [place]: P: 33 CO: 138 QRS: 14 T: 39 INTERPRETIVE STATEMENTS: Normal sinus rhythm Normal ECG No previous ECG available for comparison Electronically Signed On 04-26-22 14:56:06 [employer] CUST[employer]ER EXPERIENCE SPECIALIST by Talha De Luna
== END 2022-04-24 23:11 | disposition home or self-care (01) ==
LOC: ER 20:10
DX: R05.9 Cough, unspecified (principal); R06.2 Wheezing; Z20.822 Contact with and (suspected) exposure to COVID-19
CPT/HCPCS: 93005; 85025; 80048; 36415; 83735; 85610; 84484; 83880; 0240U; 71045; 99284; J7614; J7644; J2930

== ENCOUNTER 2023-09-04 00:30 | Emergency (ER) | payer OTHER ==
[2023-09-04 00:54] LABS: Absolute Basophils 0.1 K/uL (0-0.5); Absolute Eosinophils 0.2 K/uL (0-0.5); Absolute Lymphocytes (CBC) 2.4 K/uL (0.7-4.9); Absolute Monocytes 0.8 K/uL (0.1-1.3); Absolute Neutrophil 4.9 K/uL (1.8-8.0); Basophils % 1.1 % (0-1.3); Eosinophils % 2.8 % (0-4.4); Hematocrit 39.8 % (36.0-45.0); Hemoglobin 13.4 g/dL (12.0-15.0); Lymphocytes % 28.3 % (15.3-44.8); MCH 29.6 pg (27.0-35.0); MCHC 33.6 g/dL (32.0-36.0); MCV 88.1 fL (80-100); MPV 7.6 fL (7.6-11.3); Monocytes % 9.2 % (3.3-12.3); Neutrophils % 58.6 % (41.7-73.7); Nucleated Red Blood Cells % 0.3 % (0-0); Platelets 254 thou/uL (152-406); RBC Red Blood Cell Count 4.52 M/uL (3.86-4.86); Red Cell Distribution Width 14.1 % (12.1-15.2)
[2023-09-04 01:14] LABS: Anion Gap 7.9 mEq/L (5.0-15.0); Magnesium 2.1 mg/dL (1.6-2.4); Potassium 3.9 mEq/L (3.5-5.1); Troponin High Sensitivity 5.3 pg/mL (<58.9)
[2023-09-04] MEDS ORDERED: NA CHLORIDE 0.9% 500 ML ONE (01:57)
--- NOTE | 2023-09-04 03:34 | ER ---
Nurse's Notes [facility] Name: Joya Montilla Age: 77 yrs Sex: Female : 1945 Arrival Date: 09/04/2023 Time: 00:30 Bed 7 Private MD: Diagnosis: Essential (primary) hypertension;Chest pain, unspecified Presentation: 09/03 00:43 Chief complaint: Patient states: I was watching tv when a wave of chest pain and bm8 dizziness hit me. Coronavirus screen: At this time, the client does not indicate any symptoms associated with coronavirus-19. Ebola Screen: Patient negative for fever greater than or equal to 101.5 degrees Fahrenheit, and additional compatible Ebola Virus Disease symptoms Patient denies exposure to infectious person. Patient denies travel to an Ebola-affected area in the 21 days before illness onset. No symptoms or risks identified at this time. Initial Sepsis Screen: Does the patient meet any 2 criteria? No. Patient's initial sepsis screen is negative. Does the patient have a suspected source of infection? No. Patient's initial sepsis screen is negative. Risk Assessment: Do you want to hurt yourself or someone else? Patient reports no desire to harm self or others. Onset of symptoms was September 03, 2023 at 22:00. Care prior to arrival: IV initiated. 18 GA, in the right antecubital area. 00:43 Method Of Arrival: [facility] bm8 00:43 Acuity: [place] 2 bm8 Triage Assessment: 00:45 General: Appears in no apparent distress. comfortable, Behavior is calm, cooperative, bm8 appropriate for age. Pain: Complains of pain in anterior aspect of left upper chest and left breast Pain does not radiate. Pain currently is 6 out of 10 on a pain scale. Quality of pain is described as pressure, Pain began suddenly, 3 hours ago. Is intermittent, lasting a few minutes. EENT: No deficits noted. No signs and/or symptoms were reported regarding the EENT system. Neuro: No deficits noted. Level of Consciousness is awake, alert, obeys commands, Oriented to person, place, time, situation, Appropriate for age. Cardiovascular: Reports chest pain, lightheadedness, dizzy since 2200 this evening Heart tones S1 S2 present Capillary refill < 3 seconds Patient's skin is warm and dry. Rhythm is sinus rhythm. Respiratory: Reports cough that is dry, persistent Airway is patent Respiratory effort is even, unlabored, Respiratory pattern is regular, symmetrical, Breath sounds are clear bilaterally. GI: No deficits noted. No signs and/or symptoms were reported involving the gastrointestinal system. : No deficits noted. No signs and/or symptoms were reported regarding the genitourinary system. Derm: No deficits noted. No signs and/or symptoms reported regarding the dermatologic system. Musculoskeletal: No deficits noted. No signs and/or symptoms reported regarding the musculoskeletal system. Historical: - Allergies: 00:45 No Known Allergies; bm8 - Home Meds: 00:45 magnesium oxide 400 mg magnesium Oral tablet 1 tab daily [Active]; omeprazole 40 mg bm8 Oral capsule,delayed release (e.c.) 1 cap once [Active]; montelukast 10 mg oral tablet 1 tab daily [Active]; - PMHx: 00:45 Osteoporosis; bm8 - PSHx: 00:45 Appendectomy; Hysterectomy; knee replacement; rotator cuff repair; bm8 - Immunization history:: Adult Immunizations up to date. - Infectious Disease History:: Denies. - Social history:: Smoking status: Patient denies any tobacco usage or history of. Screenin:54 [facility] ED Fall Risk Assessment (Adult) History of falling in the last 3 months, bm8 including since admission No falls in past 3 months (0 pts) Confusion or Disorientation No (0 pts) Intoxicated or Sedated No (0 pts) Impaired Gait No (0 pts) Mobility Assist Device Used No (0 pt) Altered Elimination No (0 pt) Score/Fall Risk Level 0 - 2 = Low Risk Oriented to surroundings, Maintained a safe environment, Educated pt \T\ family on fall prevention, incl call for assistance when getting out of bed. Abuse screen: Denies threats or abuse. Nutritional screening: No deficits noted. Tuberculosis screening: No symptoms or risk factors identified. Assessment: 00:54 Reassessment: see triage note. bm8 01:33 Reassessment: Patient and/or family updated on plan of care and expected duration. Pain tm6 level reassessed. Patient is alert, oriented x 3, equal unlabored respirations, skin warm/dry/pink. 01:46 Reassessment: pt is up and walking to restroom under own power, being escorted by bm8 daughter. Patient states feeling better. Patient states symptoms have improved. pt is asking when she can go home. provider made aware.. General: Appears in no apparent distress. comfortable, Behavior is calm, cooperative, appropriate for age. Pain: Complains of pain in chest and anterior aspect of left upper chest Pain does not radiate. Pain currently is 2 out of 10 on a pain scale. at worst was 2 out of 10 on a pain scale. level that patient reports is acceptable is 2 out of 10 on a pain scale. Neuro: Level of Consciousness is awake, alert, obeys commands, Oriented to person, place, time, situation, Appropriate for age. Cardiovascular: Reports chest pain, Denies lightheadedness, Heart tones S1 S2 present Capillary refill < 3 seconds Patient's skin is warm and dry. Respiratory: Airway is patent Respiratory effort is even, unlabored, Respiratory pattern is regular, symmetrical, Breath sounds are clear bilaterally. Vital Signs: 00:43 BP 158 / 82; Pulse 89; Resp 18; Temp 98.4; Pulse Ox 95% on R/A; Weight 83.46 kg; Height bm8 5 ft. 3 in. ; Pain 6/10; 01:33 BP 157 / 88; Pulse 86; Resp 18; Pulse Ox 96% ; tm6 01:42 BP 156 / 90 Supine; Pulse 86; bm8 01:43 BP 163 / 88 Sitting; Pulse 90; bm8 01:45 BP 150 / 86 Standing; Pulse 92; bm8 02:00 BP 141 / 72; Pulse 87; Resp 17; Pulse Ox 94% on R/A; km8 02:30 BP 135 / 72; Pulse 85; Resp 18; Pulse Ox 94% on R/A; km8 03:00 BP 143 / 72; Pulse 86; Resp 18; Pulse Ox 95% on R/A; km8 03:30 BP 124 / 74; Pulse 82; Resp 18; Pulse Ox 95% on R/A; km8 00:43 Body Mass Index 32.59 (83.46 kg, 160.02 cm) bm8 00:43 Pain Scale: Adult bm8 Laura Coma Score: 00:54 Eye Response: spontaneous(4). Motor Response: obeys commands(6). Verbal Response: bm8 oriented(5). Total: 15. ED Course: 00:31 Patient arrived in ED. jj6 00:43 Cristo Campuzano, RN is Primary Nurse. bm8 00:43 [facility]land [facility]C [facility]. kb 00:43 Michael Martins MD is Attending Physician. kb 00:45 Triage completed. bm8 00:45 Arm band placed on right wrist. EKG completed in triage. Results shown to MD. bm8 00:54 Patient has correct armband on for positive identification. Placed in gown. Bed in low bm8 position. Call light in reach. Side rails up X2. Adult w/ patient. Client placed on continuous cardiac and pulse oximetry monitoring. NIBP monitoring applied. information technology security analyst on. Pulse ox on. NIBP on. Door closed. Noise minimized. Visitors limited. Lights dimmed. Warm blanket given. Verbal reassurance given. Head of bed elevated. 00:54 No provider procedures requiring assistance completed. Maintain EMS IV. Dressing bm8 intact. Good blood return noted. Site clean \T\ dry. Gauge \T\ site: 18 right ac. 01:00 XRAY Chest (1 view) In Process Unspecified. EDMS 03:33 Talha De Luna MD is Referral Physician. sp4 03:46 Provided Education on: d/c teaching. km8 03:46 IV discontinued, intact, bleeding controlled, No redness/swelling at site. Pressure km8 dressing applied. Administered Medications: 02:08 Drug: NS 0.9% IV 500 ml IV at bolus once Route: IV; Rate: bolus; Site: right bm8 antecubital; 03:00 Follow up: IV Status: Completed infusion; IV Intake: 500ml km8 Medication: 00:54 VIS not applicable for this client. bm8 Intake: 03:00 IV: 500ml; Total: 500ml. km8 Outcome: 03:33 Discharge ordered by . sp4 03:46 Discharged to home ambulatory, km8 03:46 Condition: good 03:46 Discharge instructions given to patient, Instructed on discharge instructions, follow up and referral plans. Demonstrated understanding of instructions, follow-up care, 03:47 Patient left the ED. km8 Signatures: Dispatcher [employer] EDSC Deepika Mcfarland FNP-C DIRECTOR OF SLEEP-Anabell [place] jj6 Michael Martins MD MD sp4 Vanesa Quiñones RN RN km8 Katerina Easley, RN RN tm6 Cristo Campuzano, RN RN bm8
--- NOTE | 2023-09-04 03:34 | EDPHYS ---
Physician Documentation [facility] Name: Joya Montilla Age: 77 yrs Sex: Female : 1945 Arrival Date: 09/04/2023 Time: 00:30 Bed 7 Private MD: ED Physician Michael Martins HPI: 09/03 01:34 This 77 yrs old Female presents to ER via EMS with complaints of Dizziness, kb High Blood Pressure. 01:34 Patient is a 77-year-old female who presents for dizziness and chest pressure that kb started at 10 PM. States she was about to go to bed when she stood up and had the dizziness. States she laid in bed to try to go to sleep but something felt wrong so she decided to come in for evaluation. Reports dizziness was worse whenever she lifted her head off the pillow.. Historical: - Allergies: 00:45 No Known Allergies; bm8 - Home Meds: 00:45 magnesium oxide 400 mg magnesium Oral tablet 1 tab daily [Active]; omeprazole 40 mg bm8 Oral capsule,delayed release (e.c.) 1 cap once [Active]; montelukast 10 mg oral tablet 1 tab daily [Active]; - PMHx: 00:45 Osteoporosis; bm8 - PSHx: 00:45 Appendectomy; Hysterectomy; knee replacement; rotator cuff repair; bm8 - Immunization history:: Adult Immunizations up to date. - Infectious Disease History:: Denies. - Social history:: Smoking status: Patient denies any tobacco usage or history of. ROS: 01:04 Constitutional: As per HPI kb Exam: 01:04 Constitutional: This is a well developed, well nourished patient who is awake, alert, kb and in no acute distress. Head/Face: Normocephalic, atraumatic. ENT: Moist Mucous membranes Cardiovascular: Regular rate Respiratory: Respirations even and unlabored. No increased work of breathing. Talking in full sentences Abdomen/GI: Soft, non-tender. No distention Skin: Warm, dry with normal turgor. Normal color. MS/ Extremity: Pulses equal, no cyanosis. Neurovascular intact. Full, normal range of motion. Neuro: Awake and alert, GCS 15, oriented to person, place, time, and situation. Moves all extremities. Normal gait. 01:04 ECG was reviewed by the Attending Physician. Vital Signs: 00:43 BP 158 / 82; Pulse 89; Resp 18; Temp 98.4; Pulse Ox 95% on R/A; Weight 83.46 kg; Height bm8 5 ft. 3 in. ; Pain 6/10; 01:33 BP 157 / 88; Pulse 86; Resp 18; Pulse Ox 96% ; tm6 01:42 BP 156 / 90 Supine; Pulse 86; bm8 01:43 BP 163 / 88 Sitting; Pulse 90; bm8 01:45 BP 150 / 86 Standing; Pulse 92; bm8 02:00 BP 141 / 72; Pulse 87; Resp 17; Pulse Ox 94% on R/A; km8 02:30 BP 135 / 72; Pulse 85; Resp 18; Pulse Ox 94% on R/A; km8 03:00 BP 143 / 72; Pulse 86; Resp 18; Pulse Ox 95% on R/A; km8 03:30 BP 124 / 74; Pulse 82; Resp 18; Pulse Ox 95% on R/A; km8 00:43 Body Mass Index 32.59 (83.46 kg, 160.02 cm) bm8 00:43 Pain Scale: Adult bm8 Laura Coma Score: 00:54 Eye Response: spontaneous(4). Motor Response: obeys commands(6). Verbal Response: bm8 oriented(5). Total: 15. MDM: 00:33 Patient medically screened. kb 01:36 Differential diagnosis: cardiac arrhythmia, generalized weakness, hypovolemia, kb near-syncope, vertigo. Data reviewed: vital signs, nurses notes. 01:36 Historians other than the Patient: [facility]. kb 09/03 00:43 Order name: Basic Metabolic Panel; Complete Time: 01:30 kb 09/03 00:43 Order name: CBC with Diff; Complete Time: 00:58 kb 09/03 00:43 Order name: Magnesium; Complete Time: 01:30 kb 09/03 00:43 Order name: Troponin HS; Complete Time: 01:30 kb 09/03 01:56 Order name: Troponin High Sensitivity; Complete Time: 03:28 sp4 09/03 00:43 Order name: XRAY Chest (1 view) kb 09/03 00:43 Order name: EKG; Complete Time: 00:43 kb 09/03 00:43 Order name: Cardiac monitoring; Complete Time: 00:56 kb 09/03 00:43 Order name: EKG - Nurse/Tech; Complete Time: 00:56 kb 09/03 00:43 Order name: IV Saline Lock; Complete Time: 00:56 kb 09/03 00:43 Order name: Labs collected and sent; Complete Time: 00:56 kb 09/03 00:43 Order name: O2 Per Protocol; Complete Time: 00:56 kb 09/03 00:43 Order name: O2 Sat Monitoring; Complete Time: 00:56 kb 09/03 01:30 Order name: Orthostatics; Complete Time: 01:54 kb EC:04 Rate is 86 beats/min. Rhythm is regular. QRS [place] is Normal. [place] interval is normal at kb 146 msec. QRS interval is normal at 74 msec. QT interval is normal at 454 msec. Administered Medications: 02:08 Drug: NS 0.9% IV 500 ml IV at bolus once Route: IV; Rate: bolus; Site: right bm8 antecubital; 03:00 Follow up: IV Status: Completed infusion; IV Intake: 500ml km8 Disposition: 03:32 Co-signature as Attending Physician, Michael Martins MD I agree with the assessment sp4 and plan of care. I reviewed the patient's care provided by Advanced Practice Provider \T\ agree w/ the diagnosis \T\ care plan. I personally saw the pt \T\ performed a substantive portion of the visit, incldng all aspects of the (History/Exam/Medical Decision Making). Disposition Summary: 09/04/23 03:33 Discharge Ordered Notes: Continue all home medications Location: Home sp4 Problem: new sp4 Symptoms: have improved sp4 Condition: Stable sp4 Diagnosis - Essential (primary) hypertension sp4 - Chest pain, unspecified sp4 Followup: sp4 - With: Talha De Luna MD - When: 7 - 10 days - Reason: Recheck today's complaints Discharge Instructions: - Discharge Summary Sheet sp4 - Hypertension, Adult sp4 Forms: - Patient Portal Instructions sp4 Signatures: Dispatcher [employer] Deepika Lucas FNP-C FNP-Ckb Potepalov, Sergey, MD MD sp4 Cristo Campuzano RN RN bm8 Vanesa Quiñones RN km8
[2023-09-04 04:12] VITALS: BP 124/74; TEMP 98.4; O2SAT 95
--- NOTE | 2023-09-04 19:38 | RAD REPORT ---
EXAM DESCRIPTION: RAD - Chest Single View - 09/04/2023 12:58 am CLINICAL HISTORY: 77 years Female, CHEST PAIN COMPARISON: None. FINDINGS: Single portable AP upright view of the chest. Normal-sized of the cardiac silhouette. No c ongestion. Minimal basilar opacities. No pleural effusion or pneumothorax. No acute osseous abnormali ty. IMPRESSION: Minimal basilar opacities which could be due to atelectasis or infection. Electronically signed by: Zainab Monreal MD 09/04/2023 01:22 AM CDT Due to temporary technical issues with the PACS/Fluency reporting system, reports are being signed by the in house radiologists without review as a courtesy to insure prompt reporting. The interpreting radiologist is fully responsible for the content of the report.
== END 2023-09-04 03:47 | disposition home or self-care (01) ==
LOC: ER 00:30
DX: I10 Essential (primary) hypertension (principal)
CPT/HCPCS: 85025; 80048; 36415; 83735; 84484 ×2; 71045; 96360; 99285; J7040; 93005